=== PATIENT | male | born 1995 | race Caucasian/White ===

== ENCOUNTER 2016-07-28 19:29 | Emergency (ER) | payer BC ==
[2016-07-28 19:49] VITALS: BP 138/89; PULSE 100; RESP 20; TEMP 98.1
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
--- NOTE | 2016-07-28 20:22 | XR ---
EXAMINATION TYPE: XR mandible complete DATE OF EXAM: 07/28/2016 8:13 PM COMPARISON: NONE HISTORY: Jaw pain TECHNIQUE: 5 views FINDINGS: There is a lucent line that is suggestive of a nondisplaced oblique fracture of the right m andibular condyle. This is just seen on the frontal view. There is no dislocation. IMPRESSION: There is probably a nondisplaced fracture of the right mandibular condyle.
== END 2016-07-28 20:46 | disposition home or self-care (01) ==
LOC: EC 19:29
DX: S02.609A Fracture of mandible, unspecified, initial encounter for closed fracture (principal); Y04.0XXA Assault by unarmed brawl or fight, initial encounter
CPT/HCPCS: 70110; 99283

== ENCOUNTER → 2017-11-15 | Outpatient (CLI) | payer OTHER ==
--- NOTE | 2017-11-16 03:47 | MR ---
EXAMINATION TYPE: MR shoulder LT wo con DATE OF EXAM: 11/15/2017 COMPARISON: None HISTORY: Lt shoulder pain, dislocated, decreased ROM, prior surgery 2014 TECHNIQUE: Multiplanar, multisequence imaging of the left shoulder is performed without contrast. FINDINGS: The supraspinatus tendon is intact. Biceps tendon is intact. There is a wavy appearance of the subsca pularis tendon. There is increased signal posterior to the subscapularis tendon and anterior to the a nterior glenoid labrum. The posterior glenoid labrum appears intact. There is small shoulder joint ef fusion. I see no fracture. There is no subacromial impingement. IMPRESSION: There is mixed signal anterior to the anterior glenoid labrum that could relate to a partial tear of the subscapularis tendon. There is triangular-shaped area of mixed signal posterior to the subscapula ris tendon that could be debris and blood clot. There is some mild deformity of the anterior glenoid labrum with some truncation that could relate to a tear. Small joint effusion.
== END | disposition home or self-care (01) ==
LOC: RADMRIMAIN 19:42
PROVIDERS: ATTEND Orthopaedic Surgery
DX: S46.012A Strain of muscle(s) and tendon(s) of the rotator cuff of left shoulder, initial encounter (principal)

== ENCOUNTER → 2017-12-11 | Outpatient (CLI) | payer OTHER ==
[2017-12-11 13:12] LABS: Basophils % (A) 0 %; Eosinophils # (A) 0.2 k/uL (0-0.7); Eosinophils % (A) 2 %; HCT 48.2 % (39.0-53.0); Lymphocytes # (A) 2.3 k/uL (1.0-4.8); Lymphocytes % (A) 27 %; MCH 29.4 pg (25.0-35.0); MCHC 33.2 g/dL (31.0-37.0); MCV 88.5 fL (80.0-100.0); Mean Platelet Volume 7.5; Monocytes # (A) 0.6 k/uL (0-1.0); Monocytes % (A) 7 %; Neutrophils # (A) 5.3 k/uL (1.3-7.7); Neutrophils % (A) 62 %; Platelet Count 309 k/uL (150-450); RBC 5.44 m/uL (4.30-5.90); RDW 12.2 % (11.5-15.5); WBC 8.4 k/uL (3.8-10.6)
[2017-12-11 13:19] LABS: Potassium 4.9 mmol/L (3.5-5.1)
== END | disposition home or self-care (01) ==
LOC: LABWHC1 12:20
PROVIDERS: ATTEND Orthopaedic Surgery
DX: Z01.812 Encounter for preprocedural laboratory examination (principal); M75.42 Impingement syndrome of left shoulder
CPT/HCPCS: 36415; 80051; 85025

== ENCOUNTER 2017-12-26 06:48 | Day surgery (SDC) | payer BC, OTHER ==
[2017-12-20 15:37] VITALS: BMI 28.0
--- NOTE | 2017-12-25 17:10 | HP ---
HISTORY AND PHYSICAL DATE OF SURGERY: 12/26/2017 Phil Daniels is a 22-year-old patient seen with progressive left shoulder pain. We discussed treatment options. He elected to proceed with left shoulder arthroscopy. Consent regarding the procedure was obtained. PAST MEDICAL HISTORY: Noncontributory. PAST SURGICAL HISTORY: Left shoulder surgery. DAILY MEDICATIONS: Tylenol as needed. ALLERGIES: NONE REPORTED. SOCIAL HISTORY: He denies current tobacco use. PHYSICAL EVALUATION OF THE LEFT SHOULDER: There is a previous well-healed anterior incision. Flexion 90 degrees, abduction 60 degrees, external rotation 0 degrees. Tenderness along the anterior glenohumeral area. Impingement sign positive 70 degrees. Distal neurovascular exam intact. LEFT SHOULDER RADIOGRAPHS: Left knee radiographs revealed mild osteoarthritic changes. An MRI of the left shoulder revealed a partial subscapularis tendon tear, probable labral tear and a glenohumeral joint effusion. IMPRESSION: Left shoulder pain with labral tear and rotator cuff tear. PLAN: Left shoulder arthroscopy with arthroscopic decompression, possible labral repair, possible rotator cuff repair and debridement. MMODL / IJN: [id number] /
[~2017-12-26 06:48] MED LIST: DEXAMETHASONE SOD PHOSPHATE 10 MG/ML 1 ML VIAL IV ONE; HYDROmorphone 0.5 MG/0.5 ML SYRINGE IVP PRN; LACTATED RINGERS 1,000 ML IV SCH; LIDOCAINE 1% 20 ML VIAL (10MG/ML) FOR IV START INTRADERMA PRN; MIDAZOLAM 2 MG/2 ML VIAL IV PRN; ONDANSETRON 4 MG/2 ML VIAL IVP ONE; SCOPOLAMINE 1.5MG/72HR PATCH TRANSDERM ONE; ceFAZolin IN SWFI 2 GM/20 ML SYRINGE IVP ONE
[2017-12-26] MEDS ORDERED: MIDAZOLAM 2 MG/2 ML VIAL IV ONE (08:20)
[2017-12-26] MEDS ORDERED: GLYCOPYRROLATE 0.2 MG/ML 2 ML VIAL ONE (08:38)
[2017-12-26] MEDS ORDERED: NEOSTIGMINE 1 MG/ML 10 ML VIAL ONE (08:38)
[2017-12-26] MEDS ORDERED: fentaNYL (PF) 50 MCG/ML 2 ML AMP ONE (08:38)
[2017-12-26] MEDS ORDERED: PROPOFOL 10 MG/ML 20 ML VIAL IV ONE (08:38)
[2017-12-26] MEDS ORDERED: ROCURONIUM BROMIDE 10 MG/ML 10 ML VIAL IV ONE (08:38)
--- NOTE | 2017-12-26 09:02 | P.ONQ ---
Anesthesiology Proc Note - PNB - Peripheral Nerve Block Performed Left Interscalene Single Time Out Performed: Yes (0823) Procedure Start Time: Procedure Stop Time: Indication: Acute Post-Operative Pain, Dx/Pain Location (Left Shoulder Pain), Requested by physician Sedation Type: Sedate with meaningful contact maintained Preparation: Sterile Prep Position: Supine Catheter: None Needle Types: On-Q Needle Size: 50mm (2") Needle Gauge: 21 Technique: Ultrasound Injectate: 0.5% Ropivacaine (see comment for volume) (20 ml) Blood Aspirated: No Pain Paresthesia on Injection Noted: No Resistance on Injection: Normal Events: Uneventful and Well Tolerated
[2017-12-26] MEDS ORDERED: LACTATED RINGERS 1,000 ML IV ONE (09:57)
[2017-12-26 10:12] VITALS: TEMP 97.3
--- NOTE | 2017-12-26 10:21 | P.OP ---
Date of Procedure: 12/26/17 Preoperative Diagnosis: Left shoulder impingement Postoperative Diagnosis: 1. Left shoulder impingement 2. Left shoulder superficial rotator cuff tear 3. Left shoulder adhesions 4. Left shoulder superficial anterior labral tear Procedure(s) Performed: 1. Left shoulder arthroscopic subacromial decompression 2. Left shoulder debridement superficial rotator cuff tear 3. Left shoulder lysis of adhesions 4. Left shoulder debridement superficial anterior labral tear Anesthesia: GETA, regional (Interscalene block) Surgeon: Rickie Morales Estimated Blood Loss (ml): 5 Pathology: none sent Condition: stable Disposition: PACU Indications for Procedure: 22 year-old patient seen with persistent left shoulder pain. After having treatment options discussed, he elected to proceed with arthroscopy. Operative Findings: see description of procedure Description of Procedure: Patient underwent an interscalene block by department of anesthesia for postoperative pain management. The patient was then taken to the operative suite. The patient underwent a general anesthetic by the department of anesthesia. The patient was placed into a lateral position and secured. There was appropriate padding of the bony prominence. Left shoulder was then prepped and draped in normal sterile orthopedic fashion. We placed the extremity in 10 pounds of longitudinal traction. A posterior incision was now made for a posterior working portal site. The trocar and cannula were inserted into the glenohumeral joint. Arthroscopy was initiated. Spinal needle was now inserted anteriorly, to ascertain the anterior working portal site. An incision was now made in that area, a trocar was inserted followed by a probe. There was evidence for previous surgery with some residual sutures along the anterior capsule area. There was a prominent knot anteriorly. At this point I meticulously removed all the redundant residual suture material. The glenohumeral joint appeared unremarkable with no snapping chondromalacia present. The posterior, inferior and superior labrum were all intact and stable. There was evidence for previous work on the anterior labrum. It appeared to be diminutive anterior/superior. There was some superficial tearing more inferiorly. I used a motorized shaver and debrided that down to stable tissue. There was some adhesions anteriorly. A lysis of the adhesions was performed. The residual labrum was at this point found to be stable. It was again diminutive but overall intraoperatively there appeared be good stability of glenohumeral joint. At this point instruments were removed from glenohumeral joint. Utilizing the posterior working portal site, the trocar and cannula were inserted into the subacromial space. Arthroscopy initiated. I made an incision 2 fingerbreadths lateral to the acromion. I introduced my trocar followed by my ArthroCare ablator. I now began ablating thick subacromial bursal tissue, which exposed the undersurface of the anterior acromion. There was diminished subacromial space. I performed a subacromial decompression. There was good decompression noted. I turned my attention to the rotator cuff tendon. There was some superficial tearing on distal super supraspinatus. Motorize shaver was now utilized to debrided down to stable tissue. I meticulously probed the area and did not find any perforations or full-thickness tears present. The tendon tissue was somewhat thin but it appears stable. I now injected 1 ml Renue in the debrided rotator cuff tendon site. Instruments now removed from the portal sites. All portal sites were approximated with nylon suture. Sterile dressings were applied followed by a sling The patient was awakened, transferred to a bed, and taken to recovery in stable condition.
[2017-12-26 10:31] VITALS: RESP 16
[2017-12-26 11:48] VITALS: BP 122/72; PULSE 100
== END 2017-12-26 12:38 | disposition home or self-care (01) ==
LOC: OR 06:48
PROVIDERS: ATTEND Orthopaedic Surgery
DX: M75.42 Impingement syndrome of left shoulder (principal); M75.112 Incomplete rotator cuff tear or rupture of left shoulder, not specified as traumatic; M75.02 Adhesive capsulitis of left shoulder; S43.432A Superior glenoid labrum lesion of left shoulder, initial encounter; X58.XXXA Exposure to other specified factors, initial encounter
CPT/HCPCS: 64415; 29823; C1765; J2250; J1100; J2710; J2405; J3010; J2704; J0690

== ENCOUNTER → 2019-09-12 | Outpatient (CLI) | payer BC ==
[2019-09-12 16:53] LABS: Hepatitis A Antibody IgM Non-Reactive (Non-Reactive); Hepatitis B Core IgM Non-Reactive (Non-Reactive); Hepatitis B Surface Antigen Non-Reactive (Non-Reactive); Hepatitis C IgG Antibody Non-Reactive (Non-Reactive)
== END | disposition home or self-care (01) ==
LOC: LABWHC1 08:02
PROVIDERS: ATTEND Internal Medicine
DX: R94.5 Abnormal results of liver function studies (principal)
CPT/HCPCS: 36415; 80074

== ENCOUNTER 2020-04-15 09:37 | Emergency (ER) | payer BC, OTHER ==
[2020-04-15 09:46] VITALS: PULSE 76; RESP 18; TEMP 97.7
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
[2020-04-15 11:07] VITALS: BP 128/85
== END 2020-04-15 11:07 | disposition home or self-care (01) ==
LOC: EC 09:37
DX: S09.90XA Unspecified injury of head, initial encounter (principal); W22.09XA Striking against other stationary object, initial encounter; Y93.H9 Activity, other involving exterior property and land maintenance, building and construction; Y92.69 Other specified industrial and construction area as the place of occurrence of the external cause; Y99.0 Civilian activity done for income or pay
CPT/HCPCS: 70450; 99284

== ENCOUNTER → 2020-04-16 | Outpatient (CLI) | payer OTHER ==
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
== END | disposition home or self-care (01) ==
LOC: RADXRMAIN 12:34
PROVIDERS: ATTEND Emergency Medicine
DX: S13.4XXA Sprain of ligaments of cervical spine, initial encounter (principal)
CPT/HCPCS: 72050

== ENCOUNTER → 2020-04-27 | Outpatient (CLI) | payer OTHER ==
--- NOTE | 2020-04-27 16:06 | MR ---
EXAMINATION TYPE: MR brain wo con DATE OF EXAM: 04/27/2020 COMPARISON: CT brain April 15, 2020 HISTORY: Dizziness, postconcussion syndrome, contusion injury. TECHNIQUE: Multiplanar, multisequence imaging of the brain and brainstem is performed without IV cont rast. The trauma protocol. FINDINGS: Diffusion weighted images demonstrate no evidence of a recent infarct or other diffusion abnormality. There is no extraaxial fluid collection or significant white matter signal abnormality. The ventricu lar system and cisternal spaces are normal in size and appearance. The brain volume is age appropria te. T2 Star weighted images show no suspicious intraparenchymal blood product. Some artifact suspecte d just superior to the cribriform plate. Midline structures demonstrate normal morphology. The craniocervical junction appears within normal limits. Normal vascular flow voids are present. Incidental dominant left vertebral artery. The visual ized sinuses are clear and the globes are intact. IMPRESSION: No suspicious intraparenchymal blood product. No significant white matter changes. Unrema rkable study.
== END | disposition home or self-care (01) ==
LOC: RADMRIMAIN 14:16
PROVIDERS: ATTEND Emergency Medicine
DX: S00.83XD Contusion of other part of head, subsequent encounter (principal); S13.4XXD Sprain of ligaments of cervical spine, subsequent encounter; G44.321 Chronic post-traumatic headache, intractable
CPT/HCPCS: 70551

== ENCOUNTER 2020-11-01 20:26 | Emergency (ER) | payer BC ==
[2020-11-01 20:48] VITALS: BP 144/92; PULSE 85; RESP 18; TEMP 98.5
[2020-11-01] MEDS ORDERED: PROPARACAINE 0.5% OPHTH DROPS 15 ML BTL RIGHT EYE STA (21:23)
[2020-11-01] MEDS ORDERED: MORPHINE SULFATE 4 MG/ML SYRINGE IM STA (21:49)
[2020-11-01] MEDS ORDERED: ERYTHROMYCIN 5 MG/GM OPHTH OINT 3.5 GM TUBE RIGHT EYE STA (22:03)
[2020-11-01] MEDS ORDERED: FLUORESCEIN STRIPS 1 MG STRIP RIGHT EYE ONE (22:06)
--- NOTE | 2020-11-01 22:20 | ED ---
Eye Problem HPI - General Chief complaint: Eye Problems Stated complaint: Post Op Eye Problems Time Seen by Provider: 11/01/20 21:08 Source: patient Mode of arrival: ambulatory Limitations: no limitations - History of Present Illness Initial comments: Patient is a 24-year-old male presenting to the emergency Department with complaints of worsening pain in his right eye for the past few days. Patient states he had eye surgery, amniotic membrane inserted on 10/[address] Holder. Patient states he started having irritation a few days later but states he has been using his eyedrops as prescribed. Patient states yesterday and today his pain has worsened, he can no longer open his eye all the way without increased pain. He states he did call the office today but they were booked and recommended coming in tomorrow morning. Patient states she was not able to wait that long so he came into the ER. He has been taking ibuprofen for discomfort. He denies any fevers or chills, does admit to some mild blurry vision but states because he can't open his eye other way. He does admit to a little bit of drainage when he wakes up in the mornings. He denies any trauma to his eye. He has no further complaints at this time. - Related Data Home Medications Medication Instructions Recorded Confirmed Naproxen Sodium [Aleve] 220 mg PO DAILY PRN 04/15/20 04/15/20 Allergies Allergy/AdvReac Type Severity Reaction Status Date / Time No Known Allergies Allergy Verified 11/01/20 20:48 Review of Systems ROS Statement: Those systems with pertinent positive or pertinent negative responses have been documented in the HPI. ROS Other: All systems not noted in ROS Statement are negative. Past Medical History Past Medical History: Deep Vein Thrombosis (DVT), Eye Disorder, Musculoskeletal Disorder, Skin Disorder Additional Past Medical History / Comment(s): HX OF FX LT ARM (2-3 TIMES), HX OF SHATTERED LT SHOULDER. HX DISLOCATED LT SHOULDER 07/2017, HAS TORN LABRUM CURRENTLY. HX POSS ECZEMA. HX POSS DVT. SCRATCHED CORNEA RT EYE 11/2017, USING EYE DROPS DIRECTED. History of Any Multi-Drug Resistant Organisms: None Reported Past Surgical History: Orthopedic Surgery Additional Past Surgical History / Comment(s): LEFT SHOULDER RECONSTRUCTION. RT KNEE ARTHROSCOPY. JAW FX WIRED. Past Anesthesia/Blood Transfusion Reactions: No Reported Reaction, Family History of Problems w/ Anesthesia Additional Past Anesthesia/Blood Transfusion Reaction / Comment(s): MOTHER = PONV Past Psychological History: Depression Smoking Status: Never smoker Past Alcohol Use History: Occasional Past Drug Use History: None Reported - Past Family History Mother Family Medical History: No Reported History General Exam - General Exam Comments Initial Comments: GENERAL: Patient is well-developed and well-nourished. Patient is nontoxic and in moderate distress. HEAD: Atraumatic, normocephalic. EYES: Pupils equal round and reactive to light, extraocular movements intact, sclera anicteric. Right eye is slightly injected, eyelids are slightly erythematous both upper and lower. Eye pressures bilaterally are within normal range from 18-22. Flurocensin stain shows lens in proper position, no other abnormalities. ENT: TMs normal, nares patent, oropharynx clear without exudates. Moist mucous membranes. NECK: Normal range of motion, supple without lymphadenopathy or JVD. LUNGS: Unlabored respirations. Breath sounds clear to auscultation bilaterally and equal. No wheezes rales or rhonchi. HEART: Regular rate and rhythm without murmurs, rubs or gallops. NEUROLOGICAL: Patient is alert and oriented x 3. SKIN: Warm, Dry, normal turgor, no rashes or lesions noted. Limitations: no limitations Course Vital Signs 11/01/20 20:45 Temperature 98.5 F Pulse Rate 85 Respiratory 18 Rate Blood Pressure 144/92 O2 Sat by Pulse 99 Oximetry Medical Decision Making - Medical Decision Making Patient is a 24-year-old male here with complaints of increasing right eye pain. He had a membrane inserted by Dr. Holder on 10/28. Increased pain and irritation today, has been taking ibuprofen without improvement. Does admit to some mild drainage over the past couple days as well. Eye pressures are within normal limits. I did speak with Dr. Holder who recommends applying antibiotic ointment to the right eye and patching it shut, he will see him in the office tomorrow. I did check for lens and appears to be in proper position without further abrasions. Patient was given pain meds and reports improvment with his symptoms. He is stable for discharge and agreement with this plan of care. Case discussed with Dr. Saunders. Disposition Clinical Impression: Pain, eye, right Disposition: HOME SELF-CARE Condition: Stable Instructions (If sedation given, give patient instructions): Eye Pain (ED) Additional Instructions: Please return to the Emergency Department if symptoms worsen or any other concerns. Leave right eye taped shut until follow-up tomorrow. Is patient prescribed a controlled substance at d/c from ED?: No Referrals: Cedrick Araiza MD [Primary Care Provider] - 1-2 days Lucas Holder MD [STAFF PHYSICIAN] - 1-2 days Time of Disposition: 22:39
== END 2020-11-01 22:52 | disposition home or self-care (01) ==
LOC: EC 20:26
DX: H57.11 Ocular pain, right eye (principal); Z79.1 Long term (current) use of non-steroidal anti-inflammatories (NSAID)
CPT/HCPCS: 96372; 99283; J2270

== ENCOUNTER 2021-09-29 09:02 | Day surgery (SDC) | payer BC ==
[2021-09-28 11:20] VITALS: BMI 29.9
[~2021-09-29 09:02] MED LIST changes: -DEXAMETHASONE SOD PHOSPHATE 10 MG/ML 1 ML VIAL IV ONE; -HYDROmorphone 0.5 MG/0.5 ML SYRINGE IVP PRN; +LIDOCAINE 1% (10MG/ML) FOR IV START INTRADERMA PRN; -LIDOCAINE 1% 20 ML VIAL (10MG/ML) FOR IV START INTRADERMA PRN; -MIDAZOLAM 2 MG/2 ML VIAL IV PRN; -ONDANSETRON 4 MG/2 ML VIAL IVP ONE; -SCOPOLAMINE 1.5MG/72HR PATCH TRANSDERM ONE; -ceFAZolin IN SWFI 2 GM/20 ML SYRINGE IVP ONE
[2021-09-29 09:18] VITALS: TEMP 97.1
[2021-09-29] MEDS ORDERED: LACTATED RINGERS 1,000 ML IV ONE ×2 (09:18)
[2021-09-29] MEDS ORDERED: ROPIVACAINE 5MG/ML 20ML VIAL ONE (09:39)
[2021-09-29] MEDS ORDERED: MIDAZOLAM 2 MG/2 ML VIAL ONE (09:39)
[2021-09-29] MEDS ORDERED: fentaNYL (PF) 50 MCG/ML 2 ML AMP ONE (09:39)
[2021-09-29] MEDS ORDERED: methylPREDNISolone ACETATE 80 MG/ML 1 ML VIAL ONE (09:39)
--- NOTE | 2021-09-29 10:01 | P.PCN ---
Date of Procedure: 09/29/21 Procedure(s) Performed: Procedure= Left sacroiliac joints steroid injection under fluoroscopy guidance (fluoroscopy image stored on file in the radiology Department ) Preoperative diagnosis= 1-left sacroiliitis 2-left sacroiliac joint dysfunction Postoperative diagnosis=Same as preop Diagnosis . Complication = none Condition= stable Anesthesia= moderate sedation with intravenous Versed 2 mg , and fentanyl 100 micrograms . Indication for the procedure= patient complaining of low back pain , examination was positive for severe tenderness over the left sacroiliac joints bilaterally and patient diagnosed with sacroiliitis, for this reason he was good candidate for sacroiliac joint steroid injection. Description of the procedure= procedure risk and benefits discussed with the patient, including but not limited, risk of infection and bleeding, and ALLERGIC reaction to the medication and not complete pain relief and patient agreed with the preceding patient taken to the operating room, placed in prone position or standard monitors applied to the patient then after induction of anesthesia back prepped with chlorhexidine 3 times , Then under strict sterile technique,the left sacroiliac joint steroid injection done under strict sterile technique local infiltration of the skin and subcu interstitial at the location of the left sacroiliac joint then a 22-gauge Quincke Needle advanced slowly under fluoroscopy time placed in the left sacroiliac joint, needle placement confirmed with AP and oblique and lateral view then after appropriate needle placement confirmed and after negative aspiration 0.5% Ropivacaine 5 mL and 80 mg of Depo-Medrol injected in the left sacroiliac joint after negative aspiration patient tolerated the procedure well that any complications and she will follow up in clinic 3 weeks
[2021-09-29] MEDS ORDERED: IV FLUID CONTINUATION 1,000 ML IV ONE (10:03)
[2021-09-29 10:05] VITALS: RESP 16
[2021-09-29 10:25] VITALS: BP 124/71; PULSE 84
--- NOTE | 2021-09-29 10:35 | FL ---
Fluoroscopy INDICATION: Pain FINDINGS: Fluoroscopy time: 3 seconds. Images obtained: 1. IMPRESSIONS: 1. Documentation of fluoroscopy.
== END 2021-09-29 10:45 | disposition home or self-care (01) ==
LOC: ORPAIN 09:02
PROVIDERS: ATTEND Specialist
DX: M46.1 Sacroiliitis, not elsewhere classified (principal)
CPT/HCPCS: 27096; J2250; J1040; J3010; J2795; 99152

== ENCOUNTER → 2022-08-08 | Outpatient (CLI) | payer OTHER ==
--- NOTE | 2022-08-09 18:03 | MR ---
EXAMINATION TYPE: MR lumbar spine wo con DATE OF EXAM: 08/08/2022 COMPARISON: None HISTORY: 26-year-old male Low back pain into left side, incontinence, Hx of SI joint disorder TECHNIQUE: Multiplanar, multisequence images of the lumbar spine were acquired without IV contrast. FINDINGS: Vertebral body heights are preserved and alignment is maintained. Mild degenerative intervertebral disc desiccation and disc bulging at L4-L5. 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 No focal disc herniation or significant spinal canal stenosis seen. Conus medullaris is normal. No suspicious bone marrow replacement. On the right, this post intravenous and mild right neuroforaminal stenosis at L4-L5 and minimal infer ior foraminal narrowing on the left at L4-L5. IMPRESSION: 1. Mild degenerative disc disease at L4-L5 with mild disc desiccation and disc bulging. While there i s also a mild congenital spinal canal narrowing in the mid lumbar spine, there is no focal disc herni ation or significant spinal canal stenosis. 2. The bulging disc at L4-L5 contributes to mild right and minimal left neuroforaminal narrowing.
== END | disposition home or self-care (01) ==
LOC: RADMRIMAIN 12:59
PROVIDERS: ATTEND Orthopaedic Surgery
DX: M51.16 Intervertebral disc disorders with radiculopathy, lumbar region (principal); M99.73 Connective tissue and disc stenosis of intervertebral foramina of lumbar region
CPT/HCPCS: 72148

== ENCOUNTER → 2022-09-06 | Outpatient (CLI) | payer OTHER ==
--- NOTE | 2022-09-07 08:26 | MR ---
EXAMINATION TYPE: MR thoracic spine wo con DATE OF EXAM: 09/06/2022 COMPARISON: NONE HISTORY: 26-year-old male M5 4.6, thoracic spine pain, Mid/low back pain TECHNIQUE: Multiplanar, multisequence images of the thoracic spine were obtained without IV contrast. FINDINGS: There is mild degenerative disc disease particularly from T6 through T10 levels with mild degenerativ e disc desiccation, mild disc space narrowing, and posterior disc bulging. We note a posterior annula r fissure at T9-T10. No large focal disc herniation or significant spinal canal stenosis is seen. Vertebral body heights are preserved and alignment is maintained. No suspicious pulmonary replacement. Normal course, caliber, and signal intensity of the cervical spinal cord. No significant neuroforaminal narrowing appreciated on either side. Somewhat low lung volumes on the coronal series IMPRESSION: 1. Mild degenerative disc disease especially from T6-T10 levels characterized by mild disc height los s, mild disc desiccation, and small posterior disc protrusions. We note a posterior annular fissure a t T9-T10 as well. 2. No large focal disc herniation or significant spinal canal stenosis. 3. No significant foraminal stenosis.
== END | disposition home or self-care (01) ==
LOC: RADMRIMAIN 11:03
PROVIDERS: ATTEND Orthopaedic Surgery
DX: M47.26 Other spondylosis with radiculopathy, lumbar region (principal); M51.34 Other intervertebral disc degeneration, thoracic region; M51.24 Other intervertebral disc displacement, thoracic region
CPT/HCPCS: 72146

== ENCOUNTER 2022-10-19 22:18 | Emergency (ER) | payer OTHER ==
[2022-10-19 22:29] VITALS: TEMP 98.6
[2022-10-20 01:31] LABS: Basophils % (A) 0 %; Eosinophils # (A) 0.2 k/uL (0-0.7); Eosinophils % (A) 1 %; HCT 47.4 % (39.0-53.0); Lymphocytes # (A) 3.9 k/uL (1.0-4.8); Lymphocytes % (A) 31 %; MCHC 33.7 g/dL (31.0-37.0); MCV 89.1 fL (80.0-100.0); Mean Platelet Volume 7.6; Monocytes # (A) 0.8 k/uL (0-1.0); Monocytes % (A) 6 %; Neutrophils # (A) 7.7 k/uL (1.3-7.7); Neutrophils % (A) 60 %; Platelet Count 397 k/uL (150-450); RBC 5.31 m/uL (4.30-5.90); RDW 12.2 % (11.5-15.5); WBC 12.8 k/uL (3.8-10.6)
[2022-10-20 01:41] LABS: ALT 144 U/L (4-49); AST 41 U/L (17-59); African American GFR (CKD) >90 (>60 ml/min/1.73 sqM); Albumin 3.7 g/dL (3.5-5.0); Alkaline Phosphatase 92 U/L (38-126); Anion Gap 9 mmol/L; Blood Urea Nitrogen 20 mg/dL (9-20); Calcium 8.6 mg/dL (8.4-10.2); Carbon Dioxide 26 mmol/L (22-30); Chloride 102 mmol/L (98-107); Glucose 107 mg/dL (74-99); Non-African American GFR(CKD) >90 (>60 ml/min/1.73 sqM); Potassium 3.6 mmol/L (3.5-5.1); Sodium 137 mmol/L (137-145); Total Bilirubin 0.4 mg/dL (0.2-1.3); Total Protein 6.5 g/dL (6.3-8.2)
[2022-10-20 01:58] LABS: Partial Thromboplastin Time 22.6 sec (22.0-30.0); Prothrombin Time 10.2 sec (9.0-12.0)
--- NOTE | 2022-10-20 02:35 | ED ---
SOB HPI - General Chief Complaint: Shortness of Breath Stated Complaint: Difficulty Breathing, Cough Time Seen by Provider: 10/19/22 23:18 Source: patient Mode of arrival: ambulatory Limitations: no limitations - History of Present Illness Initial Comments: 26-year-old male who presents to the emergency department reporting cough and shortness of breath. States that he has had symptoms since October 08. On the he was tested at an urgent care for Covid and was positive. He was placed on Paxlovid and took the entire prescription. Continued to have symptoms of shortness of breath and cough. Went back to the urgent care on the . They did an x-ray and diagnosed him with Covid pneumonia. They placed him on antibiotics and a five-day course of steroids. he has been using an inhaler. Denies that it helped his symptoms at all. He denies a history of asthma. He is not a smoker. No fevers. No nausea or vomiting. No other alleviating, precipitating or modifying factors - Related Data Home Medications Medication Instructions Recorded Confirmed Naproxen Sodium [Aleve] 220 mg PO DAILY PRN 04/15/20 09/28/21 Pantoprazole [Protonix] 1 tab PO DAILY 08/25/21 09/28/21 Previous Rx's Medication Instructions Recorded Codeine Phosphate/Guaifenesin 5 ml PO Q4HR 3 Days #90 ml 10/20/22 [Codeine Phosphate/Guaifenesin 10-100 mg/5 ml] dexAMETHasone [Decadron] 6 mg PO DAILY #5 tab 10/20/22 Allergies Allergy/AdvReac Type Severity Reaction Status Date / Time No Known Allergies Allergy Verified 10/19/22 22:23 Review of Systems ROS Statement: Those systems with pertinent positive or pertinent negative responses have been documented in the HPI. ROS Other: All systems not noted in ROS Statement are negative. Past Medical History Past Medical History: Deep Vein Thrombosis (DVT), Eye Disorder, Musculoskeletal Disorder, Skin Disorder Additional Past Medical History / Comment(s): HX OF FX LT ARM (2-3 TIMES), HX OF SHATTERED LT SHOULDER. HX DISLOCATED LT SHOULDER 07/2017, HAS TORN LABRUM C URRENTLY. HX POSS ECZEMA. HX POSS DVT. SCRATCHED CORNEA RT EYE 11/2017, USING EYE DROPS DIRECTED. History of Any Multi-Drug Resistant Organisms: None Reported Past Surgical History: Orthopedic Surgery Additional Past Surgical History / Comment(s): LEFT SHOULDER RECONSTRUCTION. RT KNEE ARTHROSCOPY. JAW FX WIRED. Past Anesthesia/Blood Transfusion Reactions: No Reported Reaction Additional Past Anesthesia/Blood Transfusion Reaction / Comment(s): MOTHER = PONV. Past Psychological History: Depression Smoking Status: Never smoker Past Alcohol Use History: Occasional Past Drug Use History: None Reported - Past Family History Mother Family Medical History: No Reported History General Exam Limitations: no limitations General appearance: alert, in no apparent distress Head exam: Present: atraumatic, normocephalic, normal inspection Eye exam: Present: normal appearance, PERRL, EOMI. Absent: scleral icterus, conjunctival injection, periorbital swelling ENT exam: Present: normal exam, mucous membranes moist Neck exam: Present: normal inspection. Absent: tenderness, meningismus, lymphadenopathy Respiratory exam: Present: normal lung sounds bilaterally, other (Bronchospasm). Absent: respiratory distress, wheezes, rales, rhonchi, stridor Cardiovascular Exam: Present: normal rhythm, tachycardia, normal heart sounds. Absent: systolic murmur, diastolic murmur, rubs, gallop, clicks GI/Abdominal exam: Present: soft, normal bowel sounds. Absent: distended, tenderness, guarding, rebound, rigid Extremities exam: Present: normal inspection, full ROM, normal capillary refill. Absent: tenderness, pedal edema, joint swelling, calf tenderness Back exam: Present: normal inspection Neurological exam: Present: alert, oriented X3, CN II-XII intact Psychiatric exam: Present: normal affect, normal mood Skin exam: Present: warm, dry, intact, normal color. Absent: rash Course Vital Signs 10/19/22 10/19/22 10/20/22 22:24 22:43 03:16 Temperature 98.6 F Pulse Rate 108 H 88 Respiratory 20 24 20 Rate Blood Pressure 121/79 126/88 O2 Sat by Pulse 95 98 Oximetry Medical Decision Making - Medical Decision Making Was pt. sent in by a medical professional or institution (, PA, KNITTING MACHINE OPERATOR, urgent care, hospital, or fci...) When possible be specific @ -No Did you speak to anyone other than the patient for history (EMS, parent, family, police, friend...)? What history was obtained from this source @ -No Did you review nursing and triage notes (agree or disagree)? Why? @ -I reviewed and agree with nursing and triage notes Were old charts reviewed (outside hosp., previous admission, EMS record, old EKG, old radiological studies, urgent care reports/EKG's, fci records)? Report findings @ -No old charts were reviewed Differential Diagnosis (chest pain, altered mental status, abdominal pain women, abdominal pain men, vaginal bleeding, weakness, fever, dyspnea, syncope, headache, dizziness, GI bleed, back pain, seizure, CVA, palpatations, mental health, musculoskeletal)? @ -Differential Dyspnea: Coronary syndrome, arrhythmia, tamponade, asthma, COPD, pulmonary embolism, pneumonia, pneumothorax, pulmonary effusion, anaphylaxis, diabetic ketoacidosis, flailed chest, pulmonary contusion, diaphragmatic rupture, anemia, neuromuscular, this is not meant to be an all-inclusive list. EKG interpreted by me (3pts min.). @ -Yes and demonstrates sinus rhythm with a rate of 79. TX interval 148. QRS 98. QTC 391. No acute ST segment elevations or depressions X-rays interpreted by me (1pt min.). @ -Yes and demonstrates no acute process CT interpreted by me (1pt min.). @ -None done U/S interpreted by me (1pt. min.). @ -None done What testing was considered but not performed or refused? (CT, X-rays, U/S, labs)? Why? @ -None What meds were considered but not given or refused? Why? @ -None Did you discuss the management of the patient with other professionals ( professionals i.e. , PA, KNITTING MACHINE OPERATOR, lab, RT, psych nurse, social media assistant, mechanics handyman, teacher, commercial credit officer, immigration case worker)? Give summary @ -No Was smoking cessation discussed for >3mins.? @ -No Was critical care preformed (if so, how long)? @ -No Were there social determinants of health that impacted care today? How? (Homelessness, low income, unemployed, alcoholism, drug addiction, transpo rtation, low edu. Level, literacy, decrease access to med. care, fpc, rehab)? @ -No Was there de-escalation of care discussed even if they declined (Discuss DNR or withdrawal of care, Hospice)? DNR status @ -No What co-morbidities impacted this encounter? (DM, HTN, Smoking, COPD, CAD, Cancer, CVA, ARF, Chemo, Hep., AIDS, mental health diagnosis, sleep apnea, morbid obesity)? @ -None Was patient admitted / discharged? Hospital course, mention meds given and route, prescriptions, significant lab abnormalities, going to OR and other pertinent info. @ -Upon arrival patient was placed into room 7. A thorough history and physical exam was performed. IV was established. Laboratory studies are conducted. Chest x-ray was performed. Laboratory studies are within normal limits. D-dimer negative. Chest x-ray demonstrates no acute process. Patient was given a dose of Decadron. Discussed the treatment plan with the patient. He will be placed on a second course of steroids. I will also prescribe him codeine cough syrup. He is instructed to take the medications as directed and follow-up with his primary care doctor. Return for any new or worsening sy mptoms. If he has continued symptoms, he may benefit by seeing a first crusher. Patient was agreeable to the plan and was discharged in stable condition Undiagnosed new problem with uncertain prognosis? @ -No Drug Therapy requiring intensive monitoring for toxicity (Heparin, Nitro, Insulin, Cardizem)? @ -No Were any procedures done? @ -No Diagnosis/symptom? @ -Acute bronchospasm, recent Covid diagnosis Acute, or Chronic, or Acute on Chronic? @ -Acute Uncomplicated (without systemic symptoms) or Complicated (systemic symptoms)? @ -Complicated Side effects of treatment? @ -No Exacerbation, Progression, or Severe Exacerbation? @ -No Poses a threat to life or bodily function? How? (Chest pain, [place], [place], pneumonia, PE, COPD, DKA, ARF, appy, cholecystitis, CVA, Diverticulitis, Homicidal, Suicidal, threat to staff... and all critical care pts) @ -No - Lab Data Result diagrams: 10/20/22 00:50 10/20/22 00:50 Lab Results 10/20/22 10/20/22 10/20/22 Range/Units 00:50 00:50 00:50 WBC 12.8 H (3.8-10.6) k/uL RBC 5.31 (4.30-5.90) m/uL Hgb 16.0 (13.0-17.5) gm/dL Hct 47.4 (39.0-53.0) % MCV 89.1 (80.0-100.0) fL MCH 30.0 (25.0-35.0) pg MCHC 33.7 (31.0-37.0) g/dL RDW 12.2 (11.5-15.5) % Plt Count 397 (150-450) k/uL MPV 7.6 Neutrophils % 60 % Lymphocytes % 31 % Monocytes % 6 % Eosinophils % 1 % Basophils % 0 % Neutrophils # 7.7 (1.3-7.7) k/uL Lymphocytes # 3.9 (1.0-4.8) k/uL Monocytes # 0.8 (0-1.0) k/uL Eosinophils # 0.2 (0-0.7) k/uL Basophils # 0.0 (0-0.2) k/uL PT 10.2 (9.0-12.0) sec INR 1.0 (<1.2) APTT 22.6 (22.0-30.0) sec D-Dimer 0.20 (<0.60) mg/L FEU Sodium 137 (137-145) mmol/L Potassium 3.6 (3.5-5.1) mmol/L Chloride 102 (98-107) mmol/L Carbon Dioxide 26 (22-30) mmol/L Anion Gap 9 mmol/L BUN 20 (9-20) mg/dL Creatinine 0.75 (0.66-1.25) mg/dL Est GFR (CKD-EPI)AfAm >90 (>60 ml/min/1.73 sqM) Est GFR (CKD-EPI)NonAf >90 (>60 ml/min/1.73 sqM) Glucose 107 H (74-99) mg/dL Plasma Lactic Acid William (0.7-2.0) mmol/L Calcium 8.6 (8.4-10.2) mg/dL Total Bilirubin 0.4 (0.2-1.3) mg/dL AST 41 (17-59) U/L ALT 144 H (4-49) U/L Alkaline Phosphatase 92 (38-126) U/L Troponin I (0.000-0.034) ng/mL Total Protein 6.5 (6.3-8.2) g/dL Albumin 3.7 (3.5-5.0) g/dL 10/20/22 10/20/22 Range/Units 00:50 00:50 WBC (3.8-10.6) k/uL RBC (4.30-5.90) m/uL Hgb (13.0-17.5) gm/dL Hct (39.0-53.0) % MCV (80.0-100.0) fL MCH (25.0-35.0) pg MCHC (31.0-37.0) g/dL RDW (11.5-15.5) % Plt Count (150-450) k/uL MPV Neutrophils % % Lymphocytes % % Monocytes % % Eosinophils % % Basophils % % Neutrophils # (1.3-7.7) k/uL Lymphocytes # (1.0-4.8) k/uL Monocytes # (0-1.0) k/uL Eosinophils # (0-0.7) k/uL Basophils # (0-0.2) k/uL PT (9.0-12.0) sec INR (<1.2) APTT (22.0-30.0) sec D-Dimer (<0.60) mg/L FEU Sodium (137-145) mmol/L Potassium (3.5-5.1) mmol/L Chloride (98-107) mmol/L Carbon Dioxide (22-30) mmol/L Anion Gap mmol/L BUN (9-20) mg/dL Creatinine (0.66-1.25) mg/dL Est GFR (CKD-EPI)AfAm (>60 ml/min/1.73 sqM) Est GFR (CKD-EPI)NonAf (>60 ml/min/1.73 sqM) Glucose (74-99) mg/dL Plasma Lactic Acid William 1.3 (0.7-2.0) mmol/L Calcium (8.4-10.2) mg/dL Total Bilirubin (0.2-1.3) mg/dL AST (17-59) U/L ALT (4-49) U/L Alkaline Phosphatase (38-126) U/L Troponin I <0.012 (0.000-0.034) ng/mL Total Protein (6.3-8.2) g/dL Albumin (3.5-5.0) g/dL Disposition Clinical Impression: Bronchospasm, COVID-19 Disposition: HOME SELF-CARE Condition: Stable Instructions (If sedation given, give patient instructions): Bronchospasm (ED), COVID-19 (Coronavirus Disease 2019) (ED) Additional Instructions: Please take the steroids daily as directed. Continue to use your inhaler every 4 hours. Use the codeine cough syrup as needed. Follow-up with your doctor and return for any new or worsening symptoms Prescriptions: Codeine Phosphate/Guaifenesin [Codeine Phosphate/Guaifenesin 10-100 mg/5 ml] 5 ml PO Q4HR 3 Days #90 ml dexAMETHasone [Decadron] 6 mg PO DAILY #5 tab Is patient prescribed a controlled substance at d/c from ED?: Yes When asked, does pt state using other controlled substances?: No If prescribed controlled substance>3 days was MAPS reviewed?: Prescribed <3 Days Referrals: None,Stated [Primary Care Provider] - 1-2 days Amy Haley MD [STAFF PHYSICIAN] - 1-2 days Time of Disposition: 02:55
[2022-10-20] MEDS ORDERED: guaiFENesin-Coden 100-10MG/5ML 10 ML CUP PO STA (02:47)
[2022-10-20] MEDS ORDERED: DEXAMETHASONE SOD PHOSPHATE 10 MG/ML 1 ML VIAL IVP STA (02:47)
--- NOTE | 2022-10-20 03:11 | XR ---
EXAM: XR Chest, 2 Views CLINICAL HISTORY: difficulty breathing TECHNIQUE: Frontal and lateral views of the chest. COMPARISON: 02/28/16 FINDINGS: Lungs: Unremarkable. No consolidation. Pleural space: Unremarkable. No pneumothorax. Heart: Unremarkable. No cardiomegaly. Mediastinum: Unremarkable. Bones/joints: Unremarkable. IMPRESSION: Normal chest x-rays.
[2022-10-20 03:18] VITALS: BP 126/88; PULSE 88; RESP 20
== END 2022-10-20 03:18 | disposition home or self-care (01) ==
LOC: EC 22:18
DX: U07.1 COVID-19 (principal); J98.01 Acute bronchospasm; Z86.718 Personal history of other venous thrombosis and embolism; F32.A Depression, unspecified; Z79.899 Other long term (current) drug therapy
CPT/HCPCS: 36415; 93005; 85379; 80053; 83605; 84484; 85025; 85610; 85730; 71046; 99285; 96374; J1100

== ENCOUNTER → 2022-11-03 | Outpatient (CLI) | payer OTHER ==
--- NOTE | 2022-11-03 20:05 | MR ---
EXAMINATION TYPE: MR cervical spine wo con DATE OF EXAM: 11/03/2022 INDICATION: Patient age: Male; 26 years old; Reason for study: M46.1, M54.12; PHH. Neck pain that radiates down left arm COMPARISON: . None TECHNIQUE: Multi planar, multi sequence imaging was performed utilizing: T1-weighted, T2-weighted, an d turbo inversion recovery imaging of the cervical spine. IV Contrast: None FINDINGS: Alignment: The cervical vertebral bodies have preserved heights. Alignment is within normal limits gi chidi patient positioning. Bones: Bone signal is within normal limits. No abnormal bone marrow edema on inversion recovery seque nces. Minimal degeneration changes throughout the spine. Cord: The spinal cord is unremarkable with regards to their signal intensity and morphology. Discs: Intervertebral disc signal is maintained. C2-C3: No significant disc pathology. The spinal canal is patent. No neural foraminal stenosis. C3-C4: No significant disc pathology. The spinal canal is patent. No neural foraminal stenosis. C4-C5: No significant disc pathology. The spinal canal is patent. No neural foraminal stenosis. C5-C6: No significant disc pathology. The spinal canal is patent. No neural foraminal stenosis. C6-C7: No significant disc pathology. The spinal canal is patent. No neural foraminal stenosis. C7-T1: No significant disc pathology. The spinal canal is patent. No neural foraminal stenosis. Other: None. IMPRESSION: No evidence for disc herniation or significant spinal canal or neural foraminal stenosis.
--- NOTE | 2022-11-03 20:16 | MR ---
EXAMINATION TYPE: MR pelvis wo con DATE OF EXAM: 11/03/2022 COMPARISON: None CLINICAL INDICATION:Male, 26 years old with history of M46.1, M54.12; PHH, Lumbar sacroiliitis. TECHNIQUE: Triplane multisequence imaging was performed of the pelvis. IV Contrast: None FINDINGS: Reproductive: Prostate: Unremarkable. Seminal vesicle's: Unremarkable. Testes: Unremarkable. Bladder: Unremarkable. Bowel: Unremarkable as visualized. Peritoneum: Unremarkable Lymph nodes: No evidence of adenopathy. Vasculature: Unremarkable. Musculoskeletal: Mild osteophyte formation of the sacroiliac joints. Bone marrow signal is maintained . No evidence for bone marrow edema. Abdominal wall/soft tissues: Unremarkable. IMPRESSION: Mild degeneration changes of the sacroiliac joints without evidence for acute sacroiliitis.
== END | disposition home or self-care (01) ==
LOC: RADMRIMAIN 17:43
PROVIDERS: ATTEND Orthopaedic Surgery
DX: M46.1 Sacroiliitis, not elsewhere classified (principal); M54.12 Radiculopathy, cervical region
CPT/HCPCS: 72141; 72195

== ENCOUNTER 2022-11-06 07:09 | Day surgery (SDC) | payer OTHER ==
[2022-11-01 09:11] VITALS: BMI 31.9
--- NOTE | 2022-11-06 06:50 | P.HPOR ---
History of Present Illness H&P Date: 11/06/22 .D:Date: 09/14/22 : 02:43pm .T:Title: [facility] Date of :[birth year] R14 Allergies: Age: 26 year Height: 5'8" Weight: 225 lbs BP:127/83 BMI: 34.21 kg/m2 Occupation: [employer] VAS: 5 CHIEF COMPLAINT: recheck left sacroiliitis HISTORY: Xrays No new xrays taken in office Trauma or injury No Work-Related No Pain description burning. Location lateral posterior Activity Modification No Hand Dominance right DOI: None. DOS: None. TREATMENTS COMPLETED: 6 weeks of PT completed? Last completed in 2020 Yes How many sessions? 1 month (8 visits) Did it help? yes Physician directed home exercise completed? yes , doing currently with relief. Medications yes List: Motrin and Tylenol and Medrol Dosepak with mild relief of symptoms. Alternative interventions Chiropractic: No Massage therapy: No Brace: No Injections No RFA: No SUBJECTIVE: Today Mr. Daniels presents to the office for a recheck of his left sacroiliitis and thoracic MRI results. Since the time of the last appointment the patient reports that his symptoms have not changed and that he is still having "restroom" problems. He reports increased low back pain, primarily on the left side, radiating into the bilateral lower extremities (worse on left as well).He denies any numbness or tingling extending into the lower extremities at this time. Patient notes his symptoms are exacerbated with prolonged standing or activity which is making completion of his daily tasks difficult. He denies any sleep disturbances at this time. Patient has trialed the Medrol dosepak with 65- 70% relief while on it. Otherwise he has been taking Motrin and Tylenol PRN with relief as his symptoms worsen. Patient continues to deny any bladder or bowel retention/incontinence, no perineal numbness/tingling, and ambulates HPI: Today Mr. Daniels presents to the office on 08/18/22 for a recheck of his left sacroiliitis and lumbar MRI results. Since the time of the last appointment the patient reports that his symptoms have not changed and that he is still having "restroom" problems. He reports increased low back pain, primarily on the left side, radiating into the bilateral lower extremities (worse on left as well).He denies any numbness or tingling extending into the lower extremities at this time. Patient notes his symptoms are exacerbated with prolonged standing or activity which is making completion of his daily tasks difficult. He denies any sleep disturbances at this time. Patient has trialed the Medrol dosepak with 30- 40% relief for 2-3 days. Otherwise he has been taking Motrin and Tylenol PRN with relief as his symptoms worsen. Patient continues to deny any bladder or bowel retention/incontinence, no perineal numbness/tingling, and ambulates Today Mr. Daniels presents to the office on 07/26/22 for a recheck of his left sacroiliitis. Since the time of the last appointment the patient reports that his symptoms have worsened especially since 03/2022. He reports increased low back pain, primarily on the left side, radiating into the bilateral lower extremities (worse on left as well). Patient states he had SI injections in September 2021 which gave some relief but did not follow up due to loss of insurance. He denies any numbness or tingling extending into the lower extremities at this time. Patient notes his symptoms are exacerbated with prolonged standing or activity which is making completion of his daily tasks difficult. He denies any sleep disturbances at this time. Patient has trialed 1 month of physical therapy along with doing the physician recommended home exercise program daily with mild relief. Otherwise he has been taking Motrin and Tylenol PRN with relief as his symptoms worsen. Patient continues to deny any bladder or bowel retention/inc ontinence, no perineal numbness/tingling, and ambulates The patients' past social, medical, family, surgical history, as well as review of systems, have been reviewed. Please refer to the Neurosurgery History and Physical form that has been scanned in to our electronic medical record system. 14 points review of systems completed and as stated in HPI, all other systems reviewed are negative. Social History: Smoking:never a smoker P3 Alcohol: none P3 Family History: Reviewed, see appropriate section of the chart for details. P2 Past Medical History: Reviewed, see appropriate section of the chart for details. P1 Current Medications: Rx: TYLENOL 500mg ORAL , Ref: 0 Rx: methylPREDNISolone 4 mg tablets in a dose pack Ref: 0 Rx: Motrin IB Ref: 0 P1 PHYSICAL EXAMINATION: General: Awake, alert, appropriate for age, in no acute distress. HEENT: No unusual neck masses around region of lateral neck triangle, thyroid, supraclavicular groove Extremities: Skin warm and dry without acute lesions, coloration, temperature, skin intact, no tenderness or erythema Integument: Hairy patches: Absent Dorsal skin dimples: Absent Cafe au lait spots: Absent Surgical incisions: No Palpation: Please see Pain drawing on Intake sheet for further detail. Midline spinal tenderness: Yes E6 Paralumbar tenderness: YES E6 Parathoracic tenderness: Yes E6 Buttocks tenderness: No E6 Special findings: yes SI joint testing: Positive fortins finger on the left Positive hip thrust test on the left positive Emily floors on the left Positive distraction on the left Positive compression on the left POSTURAL and MUSCULO-SKELETAL EVALUATION: Coronal Balance: NEUTRAL Recumbent testing: Patient is able to lay flat on back Sagittal Balance: NEUTRAL Shoulder Profile: LEVEL Pelvic Girdle: LEVEL Neck ROM: UNRESTRICTED Lumbar ROM: RESTRICTED Shoulder ROM: Symmetrical Hip ROM: Symmetrical Knee ROM: Symmetrical Hands: Normal appearance, symmetrical Feet: Normal appearance, Symmetrical VASCULAR STATUS : LEFT RIGHT Wrist Pulses INTACT INTACT Pedal Pulses (Dors. pedis & post.tibialis) INTACT INTACT Color NORMAL NORMAL Edema Absent Absent NEUROLOGIC EXAMINATION: Mental Status:Awake and alert, fully oriented, with normal attention, concentration and memory, and fluent, appropriate speech. Cranial Nerves: I: Olfactory not tested. II: Visual acuity normal, no visual field deficit noted with confrontation. III,IV: Normal pupillary reflexes & intact extraocular movements without nystagmus. V,: Intact symmetrical facial sensation. VII: Intact symmetrical facial motor movement VIII: Hearing intact. IX,X: Intact gag, swallow, & normal voice. XI: Sternocleidomastoid, trapezius function intact. XII: Tongue midline with normal movements. L'hermitte's Sign: Negative / absent Spurling'Sign: Absent bilaterally. Cubital percussion test: Absent bilaterally. Coy-Tinel sign - Carpal region: Absent bilaterally. Straight Leg Raising: positive left Crossed straight leg raise: negative O8 MOTOR EXAM (0-5/5, N/T) STRENGTH RIGHT LEFT Shoulder Abd (not part of the RIKA score) 5 5 Elbow Flexors 5 5 Elbow Extensor 5 5 Wrist Dorsiflexors 5 5 Finger Abductor 5 5 Personnel Clerk 5 5 Hip Flexor (Not part of RIKA Motor score) 5 4 Knee Flexor 5 4 Knee Extensor 5 4 Ankle dorsiflexor 5 4 Ankle plantarflexion 5 4 Extensor hallucis 5 4 REFLEXES(0-4/2, NT) RIGHT LEFT Upper Extremities 2 2 Lower Extremities 2 2 Pathological Reflexes RIGHT LEFT Coy's Absent Absent Clonus Absent Absent Babinski Absent Absent # Indicates mechanical impairment Muscle appearance: Symmetrical, without signs of atrophy or dystrophy. Sensory system (0-4, N/T) Test type RU RAHUL RL LL Joint-Position 2 2 2 2 Vibration 2 2 2 2 Pain & LT sense 2 2 2 2 Dermatomal Deficit: None None None L4-L5 Gait and Functional Evaluation: Ambulatory aids: Independent Romberg's test: Intact bilaterally Toe heel walk / heel-toe walk intact while maintaining satisfactory balance? yes Squatting/straightening w/o assistance to a min of 60 degree knee flexion? yes Single leg stance: intact Trendelenburg sign negative bilaterally Hand and finger dexterity intact bilaterally? yes Disdiadochokinesis examination negative bilaterally? yes RADIOGRAPHIC STUDIES: MRI of lumbar spine taken on 08/08/22 at outside facility: Images reviewd with pt Mild degenerative changes of L4-5 with hydration loss. Some broad based disc bulging but no significant stenosis or nerve encroachment noted. No fractures no lesions. Remaining levels are of normal height and hydration. Nothing to explain his sx. MRI of thoracic spine taken on 09/06/22 at outside facility: No significant stenosis, or herniation. No fracture. Alignment stable. No lesions. IMPRESSION It was my pleasure to have seen and examined Phil. I reviewed the patient's clinical syndrome, physical findings, and imaging studies during the appointment today. It is my impression that the patient has a diagnosis of. 1. Left sarcoilliac osteoarthritis 2. L4-5 Disc Bulge 3. Urinary Incontinence, Fecal Incontinence 4. Lower left extremity radiculopathy 5. lower left extremity weakness I outlined the natural course history without intervention and various interventional options. PLAN: Based on my findings I suggest the following course of action: -Cervical and pelvis MRIs ordered today -Advised patient to continue with supplements, health maintenance, and home exercise programs. Patient expressed understanding and will continue with these modalities. - I discussed treatment options with the patient, including operative and non- operative options, and they have elected to proceed with the following surgical procedure: Left SI Joint injection The indications, risks, benefits, and alternatives to surgery were discussed with the patient at length. Specifically (but not limited to) the risks of infection, stiffness, recurrence of symptoms, need for revision surgery, local numbness, neurovascular injury, and blood clots were discussed. The patient's questions were answered. The decision to proceed was made. Consent will be obtained for the procedure. -Ambulate daily -Take medications as directed -Ice and rest for pain and swelling control. Spine Surgery Risk Review Mr. Daniels is presenting for evaluation of left sacroiliitis. It was my pleasure to have seen and examined Mr. Daniels. In our visit today we have had a chance to go over subjective complaints, physical examination findings and treatments including the natural course history without intervention and various interventional options. The patients imaging demonstrates: XRay taken on 07/26/22 of Lumbar Spine & Pelvis: Multiple Views of the lumbar spine obtained and reviewed and demonstrate normal sagittal as well as coronal alignment. Disc heights and vertebral body heights are maintained. There is no fracture or dislocation noted. No listhesis noted. AP pelvis demonstrates congruent level pelvis no fracture or dislocation MRI of lumbar spine taken on 08/08/22 at outside facility: Images reviewd with pt Mild degenerative changes of L4-5 with hydration loss. Some broad based disc bulging but no significant stenosis or nerve encroachment noted. No fractures no lesions. Remaining levels are of normal height and hydration. Nothing to explain his sx. MRI of thoracic spine taken on 09/06/22 at outside facility: On physical exam, Mr. Daniels demonstrates: Since the time of the last appointment the patient reports that his symptoms have not changed and that he is still having "restroom" problems. He reports increased low back pain, primarily on the left side, radiating into the bilateral lower extremities (worse on left as well).He denies any numbness or tingling extending into the lower extremities at this time. Patient notes his symptoms are exacerbated with prolonged standing or activity which is making completion of his daily tasks difficult. I have explained to the patient that as their condition progresses it will cause further neurological deficits and eventual paralysis. Based on the patients imaging, physical exam, and the rapid progression and disabling nature of their symptoms, at this time I recommend surgery in the form of a: Left SI Joint injection I discussed the risk and benefits of this procedure at length with Mr. Daniels. The patient agreed to considered pursuing the procedure abovement ioned. Prior to surgery, she should follow up with her PCP (Cardio, ID, IM etc) for clearance. Questions were invited and answered, and the patient wishes to proceed as outlined below. Currently, I am recommendin.Left SI Joint injection 2.Follow up with PCP for surgical clearance 3.Review of surgical risks and benefits as well as an educational packet on the proposed surgical procedure. Risks: All surgical procedures come with inherent risks, including those related to positioning, anesthesia, intraoperative findings, and postoperative complications. It is important to understand that surgery does not come with any guarantee of a successful outcome as complications and adverse events are always possible. The patient was given a handout in office today discussing the surgical procedure and risks associated with the intervention, both of which were discussed with the patient. These risks include but are not limited to the following: * Experiencing same, different or even worse symptoms in back, neck, arms, or legs compared to before surgery. Requiring further surgery or other forms of treatment presently or at some time in the future at same or other levels of the intended spine surgery. On an extreme but fortunately relatively rare basis severe complication such as blindness, stroke, heart attack, temporary and/or permanent nerve injury, paralysis, coma, or may occur, sometimes without known explanation. Surgical complications may include but are not limited to risk of infection, fluid accumulation in the surgical dissection site, including a seroma or hematoma, that requires additional surgery, wound drainage, bleeding, new numbness or weakness, vision changes/loss, spinal fluid leakage, non-healing and/or infected incision, headaches, difficulty or inability to swallow, hoarseness, hemopneumothorax, pneumothorax, impotence, retrograde ejaculation, vaginal dryness; injury to nerves, spinal cord, blood vessels, lymphatics or other vital organs (i.e., bowel injury, injury to the great vessels); heterotopic bone formation; complications related to the hardware such as screws, rods, cages including misplaced hardware, device failure, instrumentation at the wrong spine level, hardware fracture/breakage, or hardware loosening; vertebral failure of the spinal column above or below the newly placed hardware; retained surgical instrumentations or devices and the need for further surgery. * Medical risks of the planned spine surgery include but are not limited to generalized Infections to the whole body or local areas outside of the surgical site (sepsis), heart attack, bleeding, anaphylaxis, meningitis, seizure, epilepsy, hearing loss, burn sultana, laceration of the head or other areas of the body, bruising, hypersensitivity of the skin, bladder over distension; allergic reaction; shoulder injury related to positioning; fat, blood and air clots to other areas of the body like heart, lungs, brain; failure of internal organs such as lungs, kidneys, liver and excessive bleeding. If blood transfusions are necessary, note that transfusions may cause intolerance reactions such as anaphylaxis or other complex reactions. Despite best efforts, the results of spine surgery might not heal in terms of bone, soft tissues such as skin, fascia, ligaments, and joints. Additionally, in order to achieve best possible results, spine surgery may be carried out beyond the initially planned levels and involve decompression, fusion including insertion of hardware at levels other than the original intended area of surgical interest change some portions of the procedure in order to ensure the best possible outcomes. With spine surgery and spinal fusion, there are different off label uses of instrumentation (devices, implants and hardware) as well as biological substances (bone morphogenic proteins, demineralized bone matrix) as well as using extra bone from allograft sources (i.e. cadaver bone) or autograft (iliac crest bone, ribs, or the spine itself). The patient has been given information about these practices and their inherent risks and benefits. [facility] is an educational center that serves as a training facility for neurosurgical and orthopedic TICKET [employer] and Nursing students. Physician assistants are medically trained surgical providers who function in the outpatient, inpatient, and operating room setting under the direct supervision of the attending surgeon. [facility] has multiple operating rooms with single and overlapping rooms running daily. They currently function under the required guidelines as produced by the [facility] with regards to the overlapping rooms and will continue to comply with changes to this policy as they occur. The requirements include and are complied with as follows: (1) the critical portions of the overlapping rooms will not occur at the same time, (2) the attending physician will be physically present during the critical portions of the procedure and immediately available during the entire case, and (3) a back-up attending is designated should the primary attending not be immediately available. The patient has had a chance to review all the listed information, has been given print outs detailing this information, and has had all his/her questions answered to their satisfaction. It was my pleasure to have seen and examined Mr. Daniels. In our visit today we have had a chance to go over my understanding of our patient's current condition, the natural course history without intervention and various interventional options. Questions were invited and answered, and the patient wishes to proceed as outlined above. I have seen and examined the patient for 25 minutes and we have spent more than 50% of the time in repeat and detailed counseling about the patient's condition, its natural course history with out and as much as can be predicted with surgery and re-review of various surgical treatment options. In conclusion, Mr. Daniels requested we proceed with the above suggested surgery and are willing to accept risks and limitations of the suggested surgery as nature of the disease process and our best attempts at treatment for the condition. Thank you again for allowing us to be part of your patient's care. Please don't hesitate to contact me if you have any further questions. Signed and authenticated by: juan Gomez DO [facility] Complex and Minimally Invasive Spine Surgery [address] [place], [place] [id number] Follow- up: Post procedure Patient Education: (Informational booklet, instructions, etc) given at today's appointment: Yes .ED:Patient Education: Y Medications Reviewed: YES In our visit today Mr. Daniels and I have had a chance to go over my understanding of the patient's current condition, the natural course history without intervention and various interventional options. Questions were invited and answered, and the patient wishes to proceed as outlined above. I will be sure to keep you updated afterMr. Daniels returns here for further follow-up. Thank you again for your referral. Please do not hesitate to contact me if you have any further questions. Signed and authenticated by: Jesús Gomez DO [facility] Complex and Minimally Invasive Spine Surgery [address] [place] [address], [address] [id number] This message is confidential, intended only for the named recipient(s) and may contain information that is privileged or exempt from disclosure under applicable law. If you are not the intended recipient(s), you are notified that the dissemination, distribution or copying of this information is strictly prohibited. If you received this message in error, please notify the sender then delete this message. Patient verbalizes understanding of the information discussed. The above note was initiated by Kushal Tovar, physician recording paraprofessional education assistant for Dr. Jesús Gomez. This note has been reviewed by Dr. Gomez, who has made his personal changes and impressions for this document. CC: Cedrick Araiza M.D. # SIGNED BY Jesús Gomez ([facility])09/20/2022 11:01AM Past Medical History Past Medical History: Eye Disorder, GERD/Reflux, Musculoskeletal Disorder, Skin Disorder Additional Past Medical History / Comment(s): Hx Covid 10/09/22, still has difficulty breathing and a rapsy cough. HX OF FX LEFT ARM (2-3 TIMES), HX OF SHATTERED LEFT SHOULDER. HX DISLOCATED LEFT SHOULDER, HAS TORN LABRUM CURRENTLY. HX POSSIBLE ECZEMA. 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 Optic migraines. Difficulty urinating and defecating, "Dr Gomez thinks related to back issues". History of Any Multi-Drug Resistant Organisms: None Reported Past Surgical History: Orthopedic Surgery Additional Past Surgical History / Comment(s): LEFT SHOULDER RECONSTRUCTION, RIGHT KNEE ARTHROSCOPY, JAW WIRED SHUT DUE TO FRACTURE. Past Anesthesia/Blood Transfusion Reactions: No Reported Reaction Additional Past Anesthesia/Blood Transfusion Reaction / Comment(s): MOTHER PONV. Past Psychological History: Depression Additional Psychological History / Comment(s): PAST HX OF DEPRESSION 4-5 YEARS AGO - NO TREATMENT NOW. Smoking Status: Never smoker Past Alcohol Use History: Occasional Past Drug Use History: None Reported - Past Family History Mother Family Medical History: No Reported History Medications and Allergies Home Medications Medication Instructions Recorded Confirmed Type Naproxen Sodium [Aleve] 220 mg PO DAILY PRN 04/15/20 11/01/22 History Acetaminophen Tab [Tylenol Tab] 500 - 1,000 mg PO Q4-6H PRN 11/01/22 11/01/22 History Eye Drop Otc 1 drop RIGHT EYE DIRECTED 11/01/22 11/01/22 History Omeprazole Magnesium [PriLOSEC OTC] 20 mg PO DAILY 11/01/22 11/01/22 History Allergies Allergy/AdvReac Type Severity Reaction Status Date / Time No Known Allergies Allergy Verified 10/19/22 22:23 Physical Examination Osteopathic Statement: *. No significant issues noted on an osteopathic structural exam other than those noted in the History and Physical/Consult.
[~2022-11-06 07:09] MED LIST changes: -LACTATED RINGERS 1,000 ML IV SCH; -LIDOCAINE 1% (10MG/ML) FOR IV START INTRADERMA PRN; +Pre Op ABX Message 1 EACH MISC MISCELLANE ONE
[2022-11-06] MEDS ORDERED: BUPIVACAINE (PF) 0.25% 30 ML VIAL SQ ONE (07:31)
[2022-11-06] MEDS ORDERED: LIDOCAINE 2%-EPI 1:100,000 20 ML VIAL SQ ONE (07:31)
[2022-11-06] MEDS ORDERED: IOPAMIDOL-370 100ML BTL MISCELLANE ONE ×2 (07:33)
[2022-11-06] MEDS ORDERED: methylPREDNISolone ACETATE 40 MG/ML 1 ML VIAL INJ ONE (07:34)
[2022-11-06 07:36] VITALS: TEMP 97.2
--- NOTE | 2022-11-06 07:50 | P.OP ---
Date of Procedure: 11/06/22 Preoperative Diagnosis: 1. L SIJ PAIN 2. LOW BACK PAIN Postoperative Diagnosis: 1. L SIJ PAIN 2. LOW BACK PAIN Procedure(s) Performed: 1. LEFT SIJ INJECTION UNDER FLUOROSCOPIC GUIDANCE Implants: NONE Anesthesia: [facility] Surgeon: Jesús Gomez Estimated Blood Loss (ml): 2 IV fluids (ml): 0 Urine output (ml): 0 Pathology: none sent Condition: stable Disposition: PACU Indications for Procedure: Mr. Daniels is presenting for evaluation of left sacroiliitis. It was my pleasure to have seen and examined Mr. Daniels. In our visit today we have had a chance to go over subjective complaints, physical examination findings and treatments including the natural course history without intervention and various interventional options. The patients imaging demonstrates: XRay taken on 07/26/22 of Lumbar Spine & Pelvis: Multiple Views of the lumbar spine obtained and reviewed and demonstrate normal sagittal as well as coronal alignment. Disc heights and vertebral body heights are maintained. There is no fracture or dislocation noted. No listhesis noted. AP pelvis demonstrates congruent level pelvis no fracture or dislocation MRI of lumbar spine taken on 08/08/22 at outside facility: Images reviewd with pt Mild degenerative changes of L4-5 with hydration loss. Some broad based disc bulging but no significant stenosis or nerve encroachment noted. No fractures no lesions. Remaining levels are of normal height and hydration. Nothing to explain his sx. MRI of thoracic spine taken on 09/06/22 at outside facility: On physical exam, Mr. Daniels demonstrates: Since the time of the last appointment the patient reports that his symptoms have not changed and that he is still having "restroom" problems. He reports increased low back pain, primarily on the left side, radiating into the bilateral lower extremities (worse on left as well).He denies any numbness or tingling extending into the lower extremities at this time. Patient notes his symptoms are exacerbated with prolonged standing or activity which is making completion of his daily tasks difficult. I have explained to the patient that as their condition progresses it will cause further neurological deficits and eventual paralysis. Based on the patients imaging, physical exam, and the rapid progression and disabling nature of their symptoms, at this time I recommend surgery in the form of a: Left SI Joint injection I discussed the risk and benefits of this procedure at length with Mr. Daniels. The patient agreed to considered pursuing the procedure abovementioned. Prior to surgery, she should follow up with her PCP (Cardio, ID, IM etc) for clearance. Questions were invited and answered, and the patient wishes to proceed as outlined below. Currently, I am recommendin.Left SI Joint injection Description of Procedure: Bilateral SIJ injection The patient was seen and examined in the preoperative area. All preoperative protocols were followed. Informed consent was obtained, risks and benefits of the procedure were discussed at length. Risks including bleeding infection damage to the surrounding tissue and risk of reoperation were discussed with the patient. Risk of anesthesia up to and including was discussed with the patient. These are outlined in the risk review. They were willing to accept thes e risks and all of the risks of surgery. The patient was seen and evaluated by the anesthesia team who deemed them fit for surgery. The site was marked, the patient was willing to proceed with the procedure. The patient was transferred to the operative suite by the Department of anesthesia. They were then drifted off to sleep by the department anesthesia and sedation with local was performed. The patient tolerated this well. Once confirmation of lines and ventilation the patient was transferred to a prone Patrick table very carefully. All bony prominences including wrists, elbows, axilla, chest, hips, and thighs, and feet were padded very well. Special attention was paid to the genitalia and these were padded accordingly. SCDs were placed on bilateral lower extremities and were connected. Arms were well padded and placed on arm boards up and out in the 90/90 position. Once in position, again we confirmed good ventilation capabilities and that lines were running appropriately. The patient's lumbopelvic spine was then exposed. 1010s were placed outlining the incision site. Standard alcohol was used to clean the incision site and allowed to dry. C-arm was used to biomark the patient and confirm level for incision which was marked with a skin marker. Operative briefing was performed with all teams and everyone in agreement to proceed. The patient was then prepped and draped in a normal sterile fashion. Timeout was then performed and all parties were in agreement with the procedure to be performed. Biplanar fluoroscopy was used to identify the LEFT SI joints which were then ac cessed with a 18-gauge needle after anesthetic was placed into the subcutaneous tissue in the form of 1% with epinephrine of lidocaine along with a mixture of cortical percent Marcaine without epinephrine. Once there is good anesthesia and the SI joints were accessed Isovue was used to confirm within the joint space. Once this was confirmed 40 of Kenalog along with a mixture of lidocaine and Marcaine were injected into the SI joint. Patient remained stable the entire time without any radicular symptoms during the injection phase. The needles were withdrawn and the area cleaned and Band-Aids placed. The patient was transferred back to their hospital bed atraumatically. Patient was then awakened and extubated by the department of anesthesia having tolerated the procedure very well with no complications. They were transferred to the postoperative care unit in stable condition.
[2022-11-06 07:52] VITALS: PULSE 79; RESP 16
[2022-11-06 08:03] VITALS: BP 126/87
--- NOTE | 2022-11-06 08:12 | FL ---
Intraoperative/procedural fluoroscopic services were provided. Total fluoroscopy time is 2 seconds wi th a total of 3 submitted images to PACS. Please see the operative/procedural note for further detail s. DAP: [id number] mGym2
== END 2022-11-06 08:12 | disposition home or self-care (01) ==
LOC: OR 07:09
PROVIDERS: ATTEND Orthopaedic Surgery
DX: M46.1 Sacroiliitis, not elsewhere classified (principal); M13.88 Other specified arthritis, other site; M51.36 Other intervertebral disc degeneration, lumbar region; K21.9 Gastro-esophageal reflux disease without esophagitis; Z78.9 Other specified health status; Z86.16 Personal history of COVID-19
CPT/HCPCS: 27096; J1030; Q9967; J0665

== ENCOUNTER → 2023-03-07 | Outpatient (CLI) | payer OTHER ==
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
== END | disposition home or self-care (01) ==
LOC: RADXRMAIN 09:44
PROVIDERS: ATTEND Emergency Medicine
DX: M25.561 Pain in right knee (principal)

== ENCOUNTER → 2023-03-19 | Outpatient (CLI) | payer OTHER ==
--- NOTE | 2023-03-21 09:28 | MR ---
EXAMINATION TYPE: MR knee RT wo con DATE OF EXAM: 03/19/2023 COMPARISON: Right knee radiographs 03/07/2023. Right knee radiographs 03/13/2023 HISTORY: Right knee pain, history of meniscus repair 2015. TECHNIQUE: Multiplanar, multisequence imaging of the knee is performed without contrast. FINDINGS: Medial meniscus: Intact. Medial compartment cartilage: Mild thinning of the medial compartment cartilage. Medial collateral ligament: Intact. Lateral meniscus: Intact. Lateral compartment cartilage: Normal. Lateral collateral ligament: Intact. Patellofemoral alignment: Normal. Patellofemoral compartment cartilage: Normal. Extensor mechanism: Normal. Anterior cruciate ligament: Intact. Posterior cruciate ligament: Intact. Bone marrow: Normal. Soft tissues: Normal. No joint effusion. No Domingo's cyst. Neurovascular: Normal. IMPRESSION: 1. Mild chondromalacia medial tibiofemoral compartment. 2. Intact cruciates, collaterals, and menisci
== END | disposition home or self-care (01) ==
LOC: RADMRIMAIN 20:45
PROVIDERS: ATTEND Orthopaedic Surgery
DX: M94.261 Chondromalacia, right knee (principal)

== ENCOUNTER 2023-05-01 14:04 | Emergency (ER) | payer OTHER ==
[2023-05-01 14:37] VITALS: RESP 18; TEMP 98.4
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
[2023-05-01] MEDS ORDERED: ACETAMINOPHEN TAB 500 MG TAB PO STA (15:13)
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
[2023-05-01] MEDS ORDERED: KETOROLAC 15 MG/ML 1 ML VIAL IM STA (16:05)
[2023-05-01 16:41] VITALS: BP 135/84; PULSE 74
== END 2023-05-01 16:30 | disposition home or self-care (01) ==
LOC: EC 14:04
DX: S06.0X0A Concussion without loss of consciousness, initial encounter (principal); R40.2410 Glasgow coma scale score 13-15, unspecified time; F32.A Depression, unspecified; Z79.899 Other long term (current) drug therapy; V89.2XXA Person injured in unspecified motor-vehicle accident, traffic, initial encounter; Y92.410 Unspecified street and highway as the place of occurrence of the external cause
CPT/HCPCS: 99284; 96372; 72125; 70450; J1885

== ENCOUNTER 2023-08-01 09:01 | Emergency (ER) | payer OTHER ==
[2023-08-01 09:36] VITALS: TEMP 98.2
[2023-08-01] MEDS: SODIUM CHLORIDE 0.9% 1,000 ML IV STA (09:55)
[2023-08-01] MEDS: PANTOPRAZOLE 40 MG/10 ML VIAL IVP STA (09:56)
[2023-08-01] MEDS: MORPHINE SULFATE 4 MG/ML SYRINGE IVP STA (10:04)
[2023-08-01] MEDS: ONDANSETRON 4 MG/2 ML VIAL IVP STA (10:05)
[2023-08-01 10:35] LABS: Partial Thromboplastin Time 25.9 sec (22.0-30.0); Prothrombin Time 10.7 sec (10.0-12.5)
[2023-08-01 10:36] LABS: Basophils % (A) 1 %; Eosinophils # (A) 0.2 k/uL (0-0.7); Eosinophils % (A) 2 %; HCT 50.3 % (39.0-53.0); HGB 16.7 gm/dL (13.0-17.5); Lymphocytes # (A) 1.7 k/uL (1.0-4.8); Lymphocytes % (A) 26 %; MCH 29.3 pg (25.0-35.0); MCHC 33.2 g/dL (31.0-37.0); MCV 88.3 fL (80.0-100.0); Mean Platelet Volume 8.2; Monocytes # (A) 0.5 k/uL (0-1.0); Monocytes % (A) 7 %; Neutrophils # (A) 4.2 k/uL (1.3-7.7); Neutrophils % (A) 62 %; Platelet Count 278 k/uL (150-450); RDW 11.9 % (11.5-15.5); WBC 6.7 k/uL (3.8-10.6)
[2023-08-01 10:38] LABS: Appearance,Urine Clear (Clear); Bilirubin,Urine Negative (Negative); Blood,Urine Negative (Negative); Color,Urine Light Yellow; Glucose,Urine (UA) Negative (Negative); Ketones,Urine Negative (Negative); Leukocyte Esterase,Urine Negative (Negative); Nitrite,Urine Negative (Negative); PH, Urine 5.5 (5.0-8.0); Protein,Urine Negative (Negative); Specific Gravity,Urine 1.028 (1.001-1.035); Urobilinogen,Urine <2.0 mg/dL (<2.0)
[2023-08-01 10:47] LABS: ALT 41 U/L (4-49); AST 26 U/L (17-59); African American GFR (CKD) >90 (>60 ml/min/1.73 sqM); Alkaline Phosphatase 127 U/L (38-126); Amylase 56 U/L (30-110); Anion Gap 10 mmol/L; Blood Urea Nitrogen 21 mg/dL (9-20); Calcium 9.2 mg/dL (8.4-10.2); Carbon Dioxide 21 mmol/L (22-30); Chloride 107 mmol/L (98-107); Glucose 106 mg/dL (74-99); Lipase 66 U/L (23-300); Non-African American GFR(CKD) >90 (>60 ml/min/1.73 sqM); Potassium 4.7 mmol/L (3.5-5.1); Sodium 138 mmol/L (137-145); Total Bilirubin 0.6 mg/dL (0.2-1.3); Total Protein 6.8 g/dL (6.3-8.2)
[2023-08-01 11:01] VITALS: RESP 18
--- NOTE | 2023-08-01 12:03 | CT ---
EXAMINATION TYPE: CT abdomen pelvis w con CT DLP: 1459.7 mGycm, Automated exposure control for dose reduction was used. DATE OF EXAM: 08/01/2023 10:45 AM COMPARISON: CT abdomen pelvis most recent from CLINICAL INDICATION:Male, 27 years old with history of abdominal pain. Right flank/RLQ; RLQ abdominal pain, constipation and diarrhea. TECHNIQUE: Axial CT abdomen pelvis w con;Sagittal and coronal reformats were created on a separate w orkstation. Contrast used:100ml mL of Isovue 300 with IV Contrast, (none if empty) Oral contrast used: without Oral Contrast (none if empty) FINDINGS: LOWER CHEST: Unremarkable ABDOMEN LIVER: Unremarkable GALLBLADDER AND BILE DUCTS: Unremarkable. PANCREAS: Unremarkable. SPLEEN: Unremarkable. ADRENAL GLANDS: Unremarkable. KIDNEYS AND URETERS: No evidence of hydronephrosis or renal calculus. The ureters are unremarkable. PELVIS BLADDER: Unremarkable REPRODUCTIVE: Unremarkable. ABDOMEN & PELVIS STOMACH AND BOWEL: A normal appendix is identified. Bowel loops are normal caliber in appearance. No evidence of bowel obstruction. PERITONEUM/RETROPERITONEUM: No evidence of pneumoperitoneum or free fluid. VASCULATURE: No evidence of aortic aneurysm. MUSCULOSKELETAL: No acute osseous abnormalities LYMPH NODES: No gross evidence for lymphadenopathy. SOFT TISSUE/ABDOMINAL WALL: Unremarkable IMPRESSION: 1. No CT evidence of an acute abdominal process.
--- NOTE | 2023-08-01 12:17 | ED ---
General Adult HPI - General Chief complaint: Abdominal Pain Stated complaint: Abd Pain Time Seen by Provider: 08/01/23 09:44 Source: patient, RN notes reviewed, old records reviewed Mode of arrival: ambulatory Limitations: no limitations - History of Present Illness Initial comments: Is a 27-year-old male who presents emergency department complaining of abdominal pain. States that started this morning. Is a history of chronic back pain but states that this pain seems to be more over his right flank and right lower quadrant. Denies any pain, shortness of breath, dysuria, hematuria. States he may be slightly constipated. Denies any history of abdominal surgeries. Is uncertain if this is his back pain or abdominal pain. Presents for further evaluation. Denies nausea or vomiting or fevers. - Related Data Home Medications Medication Instructions Recorded Confirmed Celecoxib [CeleBREX] 200 mg PO BID 08/01/23 08/01/23 Pantoprazole [Protonix] 40 mg PO HS 08/01/23 08/01/23 Allergies Allergy/AdvReac Type Severity Reaction Status Date / Time No Known Allergies Allergy Verified 08/01/23 10:53 Review of Systems ROS Statement: Those systems with pertinent positive or pertinent negative responses have been documented in the HPI. Review of Systems: CONST: Denies fever EYES: Denies blurry vision ENT: Denies nasal congestion C/V: Denies Chest pain RESP: Denies shortness of breath GI: Endorses abdominal pain : Denies dysuria SKIN: Denies rash. MSK: Denies joint pain. NEURO: Denies headache ROS Other: All systems not noted in ROS Statement are negative. Past Medical History Past Medical History: Deep Vein Thrombosis (DVT), Eye Disorder, Musculoskeletal Disorder, Skin Disorder Additional Past Medical History / Comment(s): HX OF FX LT ARM (2-3 TIMES), HX OF SHATTERED LT SHOULDER. HX DISLOCATED LT SHOULDER 07/2017, HAS TORN LABRUM CURRENTLY. HX POSS ECZEMA. HX POSS DVT. SCRATCHED CORNEA RT EYE 11/2017, USING EYE DROPS DIRECTED. History of Any Multi-Drug Resistant Organisms: None Reported Past Surgical History: Orthopedic Surgery Additional Past Surgical History / Comment(s): LEFT SHOULDER RECONSTRUCTION. RT KNEE ARTHROSCOPY. JAW FX WIRED. Past Anesthesia/Blood Transfusion Reactions: No Reported Reaction Additional Past Anesthesia/Blood Transfusion Reaction / Comment(s): MOTHER = PONV. Past Psychological History: Depression Smoking Status: Never smoker Past Alcohol Use History: Occasional Past Drug Use History: None Reported - Past Family History Mother Family Medical History: No Reported History General Exam - General Exam Comments Initial Comments: General: Appears in no acute distress. HEAD: Normal with no signs of head trauma. EYES: PERRLA, EOMI, conjunctiva normal, no discharge. ENT: Hearing grossly intact, normal oropharynx. RESPIRATORY: Clear breath sounds bilaterally. No wheezes, rales, or rhonchi. C/V: Regular rate and rhythm. S1 and S2 auscultated, no edema, peripheral pulses 2+ and intact throughout ABD: Abdomen soft, nondistended. Tender to palpation of the right lower quadrant and right flank. No guarding. No radiation. No peritoneal signs. No rebound tenderness. EXT: Normal range of motion, no obvious deformity SKIN: No rashes or lesions observed on exposed skin. NEURO: Alert and oriented x 4. Limitations: no limitations Course Vital Signs 08/01/23 08/01/23 08/01/23 09:05 09:52 10:48 Temperature 98.2 F Pulse Rate 88 82 Respiratory 20 18 Rate Blood Pressure 129/79 115/79 130/92 O2 Sat by Pulse 99 97 Oximetry 08/01/23 12:07 Temperature Pulse Rate 80 Respiratory 18 Rate Blood Pressure 130/83 O2 Sat by Pulse 97 Oximetry Medical Decision Making - Medical Decision Making Was pt. sent in by a medical professional or institution (FERNANDO Pacheco, VOICE WRITING REPORTER, urgent care, hospital, or fci...) When possible be specific @ -No Did you speak to anyone other than the patient for history (EMS, parent, family, police, friend...)? What history was obtained from this source @ -No Did you review nursing and triage notes (agree or disagree)? Why? @ -I reviewed and agree with nursing and triage notes Were old charts reviewed (outside hosp., previous admission, EMS record, old EK G, old radiological studies, urgent care reports/EKG's, fci records)? Report findings @ -Old charts reviewed Differential Diagnosis (chest pain, altered mental status, abdominal pain women, abdominal pain men, vaginal bleeding, weakness, fever, dyspnea, syncope, headache, dizziness, GI bleed, back pain, seizure, CVA, palpatations, mental health, musculoskeletal)? @ -Differential Abdominal Pain Men: Appendicitis, cholecystitis, diverticulosis, ischemic bowel, pancreatitis, hepatitis, UTI, gastroenteritis, AAA, incarcerated hernia, bowel obstruction, constipation, inflammatory bowel, hepatitis, peptic ulcer disease, splenic infarction, perforated viscus, testicular torsion, this is not meant to be an all-inclusive list EKG interpreted by me (3pts min.). @ -Not done X-rays interpreted by me (1pt min.). @ -None done CT interpreted by me (1pt min.). @ -CT abdomen pelvis with contrast negative for any obvious acute intra- abdominal or pelvic process. U/S interpreted by me (1pt. min.). @ -None done What testing was considered but not performed or refused? (CT, X-rays, U/S, labs)? Why? @ -None What meds were considered but not given or refused? Why? @ -None Did you discuss the management of the patient with other professionals (professionals i.e. , PA, VOICE WRITING REPORTER, lab, RT, psych nurse, social service director, date pitter, teacher, armor officer, manager case)? Give summary @ -No Was smoking cessation discussed for >3mins.? @ -No Was critical care preformed (if so, how long)? @ -No Were there social determinants of health that impacted care today? How? (Homelessness, low income, unemployed, alcoholism, drug addiction, transportation, low edu. Level, literacy, decrease access to med. care, long term, rehab)? @ -No Was there de-escalation of care discussed even if they declined (Discuss DNR or withdrawal of care, Hospice)? DNR status @ -No What co-morbidities impacted this encounter? (DM, HTN, Smoking, COPD, CAD, Cancer, CVA, ARF, Chemo, Hep., AIDS, mental health diagnosis, sleep apnea, morbid obesity)? @ -Chronic back pain Was patient admitted / discharged? Hospital course, mention meds given and route, prescriptions, significant lab abnormalities, going to OR and other pertinent info. @ -Patient presents complaining of right sided abdominal pain. Could be radicular from back pain but cannot rule out other intra-abdominal process at this time. Vital signs within acceptable limits. We will obtain abdominal workup as well as symptomatically treat the patient with IV fluids, Protonix, Zofran, and analgesia medications. Patient in agreement this plan. Patient's laboratory studies all within acceptable limits. CT abdomen pelvis negative for any obvious acute process. On reevaluation, patient is feeling improved. We discussed his workup. Diagnosis is abdominal pain of unknown etiology. Could be related to back pain. Recommended rest, and he will be given a work note as well as a starter pack Tylenol 3. Patient agreement this plan. I instructed the patient to follow up with their PCP in the next 1-3 days. I explained that the patient should return to the emergency department if they experience any worsening symptoms. Strict return precautions were discussed with the patient. The patient expressed understanding of these instructions. I answe red all questions that the patient had. The patient was discharged home in good condition with their prescriptions and follow up information. Undiagnosed new problem with uncertain prognosis? @ -No Drug Therapy requiring intensive monitoring for toxicity (Heparin, Nitro, Insulin, Cardizem)? @ -No Were any procedures done? @ -No Diagnosis/symptom? @ -Abdominal pain of unknown etiology Acute, or Chronic, or Acute on Chronic? @ -Acute Uncomplicated (without systemic symptoms) or Complicated (systemic symptoms)? @ -Uncomplicated Side effects of treatment? @ -No Exacerbation, Progression, or Severe Exacerbation? @ -No Poses a threat to life or bodily function? How? (Chest pain, USA, [place], pneumonia, PE, COPD, DKA, ARF, appy, cholecystitis, CVA, Diverticulitis, Homicidal, Suicidal, threat to staff... and all critical care pts) @ -Unlikely - Lab Data Result diagrams: 08/01/23 10:17 08/01/23 10:17 Lab Results 08/01/23 08/01/23 08/01/23 Range/Units 10:17 10:17 10:17 WBC 6.7 (3.8-10.6) k/uL RBC 5.70 (4.30-5.90) m/uL Hgb 16.7 (13.0-17.5) gm/dL Hct 50.3 (39.0-53.0) % MCV 88.3 (80.0-100.0) fL MCH 29.3 (25.0-35.0) pg MCHC 33.2 (31.0-37.0) g/dL RDW 11.9 (11.5-15.5) % Plt Count 278 (150-450) k/uL MPV 8.2 Neutrophils % 62 % Lymphocytes % 26 % Monocytes % 7 % Eosinophils % 2 % Basophils % 1 % Neutrophils # 4.2 (1.3-7.7) k/uL Lymphocytes # 1.7 (1.0-4.8) k/uL Monocytes # 0.5 (0-1.0) k/uL Eosinophils # 0.2 (0-0.7) k/uL Basophils # 0.0 (0-0.2) k/uL PT 10.7 (10.0-12.5) sec INR 1.0 (<1.2) APTT 25.9 (22.0-30.0) sec Sodium (137-145) mmol/L Potassium (3.5-5.1) mmol/L Chloride (98-107) mmol/L Carbon Dioxide (22-30) mmol/L Anion Gap mmol/L BUN (9-20) mg/dL Creatinine (0.66-1.25) mg/dL Est GFR (CKD-EPI)AfAm (>60 ml/min/1.73 sqM) Est GFR (CKD-EPI)NonAf (>60 ml/min/1.73 sqM) Glucose (74-99) mg/dL Plasma Lactic Acid William (0.7-2.0) mmol/L Calcium (8.4-10.2) mg/dL Total Bilirubin (0.2-1.3) mg/dL AST (17-59) U/L ALT (4-49) U/L Alkaline Phosphatase (38-126) U/L Total Protein (6.3-8.2) g/dL Albumin (3.5-5.0) g/dL Amylase (30-110) U/L Lipase (23-300) U/L Urine Color Light Yellow Urine Appearance Clear (Clear) Urine pH 5.5 (5.0-8.0) Ur Specific [place] 1.028 (1.001-1.035) Urine Protein Negative (Negative) Urine Glucose (UA) Negative (Negative) Urine Ketones Negative (Negative) Urine Blood Negative (Negative) Urine Nitrite Negative (Negative) Urine Bilirubin Negative (Negative) Urine Urobilinogen <2.0 (<2.0) mg/dL Ur Leukocyte Esterase Negative (Negative) 08/01/23 08/01/23 Range/Units 10:17 10:17 WBC (3.8-10.6) k/uL RBC (4.30-5.90) m/uL Hgb (13.0-17.5) gm/dL Hct (39.0-53.0) % MCV (80.0-100.0) fL MCH (25.0-35.0) pg MCHC (31.0-37.0) g/dL RDW (11.5-15.5) % Plt Count (150-450) k/uL MPV Neutrophils % % Lymphocytes % % Monocytes % % Eosinophils % % Basophils % % Neutrophils # (1.3-7.7) k/uL Lymphocytes # (1.0-4.8) k/uL Monocytes # (0-1.0) k/uL Eosinophils # (0-0.7) k/uL Basophils # (0-0.2) k/uL PT (10.0-12.5) sec INR (<1.2) APTT (22.0-30.0) sec Sodium 138 (137-145) mmol/L Potassium 4.7 (3.5-5.1) mmol/L Chloride 107 (98-107) mmol/L Carbon Dioxide 21 L (22-30) mmol/L Anion Gap 10 mmol/L BUN 21 H (9-20) mg/dL Creatinine 0.59 L (0.66-1.25) mg/dL Est GFR (CKD-EPI)AfAm >90 (>60 ml/min/1.73 sqM) Est GFR (CKD-EPI)NonAf >90 (>60 ml/min/1.73 sqM) Glucose 106 H (74-99) mg/dL Plasma Lactic Acid William 1.3 (0.7-2.0) mmol/L Calcium 9.2 (8.4-10.2) mg/dL Total Bilirubin 0.6 (0.2-1.3) mg/dL AST 26 (17-59) U/L ALT 41 (4-49) U/L Alkaline Phosphatase 127 H (38-126) U/L Total Protein 6.8 (6.3-8.2) g/dL Albumin 4.0 (3.5-5.0) g/dL Amylase 56 (30-110) U/L Lipase 66 (23-300) U/L Urine Color Urine Appearance (Clear) Urine pH (5.0-8.0) Ur Specific [place] (1.001-1.035) Urine Protein (Negative) Urine Glucose (UA) (Negative) Urine Ketones (Negative) Urine Blood (Negative) Urine Nitrite (Negative) Urine Bilirubin (Negative) Urine Urobilinogen (<2.0) mg/dL Ur Leukocyte Esterase (Negative) Disposition Clinical Impression: Abdominal pain of unknown etiology Disposition: HOME SELF-CARE Condition: Good Is patient prescribed a controlled substance at d/c from ED?: No Referrals: None,Stated [Primary Care Provider] - 1-2 days Time of Disposition: 12:17
[2023-08-01] MEDS: ACET/COD 300 MG/30 MG STARTER PACK 6 TAB BTL PO STA (12:23)
[2023-08-01 12:27] VITALS: BP 130/83; PULSE 80
== END 2023-08-01 12:26 | disposition home or self-care (01) ==
LOC: EC 09:01
DX: K59.00 Constipation, unspecified (principal)
CPT/HCPCS: 36415; 80053; 82150; 83605; 83690; 85025; 85610; 85730; 81003; 74177; 99285; 96374; 96375 ×2; 96361; J2270; J2405; C9113; Q9967

== ENCOUNTER → 2024-04-04 | Outpatient (CLI) | payer OTHER ==
--- NOTE | 2024-04-07 22:36 | MR ---
EXAMINATION TYPE: MR knee RT wo con DATE OF EXAM: 04/04/2024 COMPARISON: Prior MRI right knee March 19, 2023 HISTORY: Right knee medial pain, locking, and swelling for a few years, history of surgery TECHNIQUE: Multiplanar, multisequence images of the knee is performed without IV contrast. FINDINGS: MEDIAL MENISCUS: Anterior and posterior horns are intact without tear. LATERAL MENISCUS: Anterior and posterior horns are intact without tear. CRUCIATE LIGAMENTS: The anterior and posterior cruciate ligaments are intact and unremarkable. COLLATERAL LIGAMENTS: The medial collateral ligament and lateral collateral ligament complex are inta ct and unremarkable. EXTENSOR MECHANISM: Visualized quadriceps and patellar tendons are intact. EFFUSION: No significant suprapatellar joint effusion. POPLITEAL CYST: No popliteal/mcmillan cyst. TRICOMPARTMENT SPACES: Mild/moderate narrowing medial tibiofemoral compartment redemonstrated. No sig nificant spurring. CARTILAGE: Some cartilaginous loss medial tibiofemoral compartment redemonstrated. BONE MARROW SIGNAL: No focal abnormal marrow signal is appreciated. OTHER: No additional significant abnormality is appreciated. IMPRESSION: No meniscal or ligamentous tear. Stable mild degenerative changes in the medial tibiofemo ral compartment. [facility], Workstation: [id number], 04/07/2024 10:34 PM
== END | disposition home or self-care (01) ==
LOC: RADMRIMAIN 15:41
PROVIDERS: ATTEND Orthopaedic Surgery
DX: M17.11 Unilateral primary osteoarthritis, right knee (principal)

== ENCOUNTER 2024-04-10 08:35 | Emergency (ER) | payer OTHER ==
--- NOTE | 2024-04-10 08:55 | ED ---
URI HPI - General Chief Complaint: Upper Respiratory Infection Stated Complaint: Chest pain,Dizziness Time Seen by Provider: 04/10/24 08:54 Source: patient, RN notes reviewed Mode of arrival: ambulatory Limitations: no limitations - History of Present Illness Initial Comments: This is a 28-year-old male with a stable medical history presenting to the emerg ency department for chief complaint of nasal congestion, cough, rhinorrhea, chest pain and intermittent fever over the past few days. Patient states that symptoms feel similar as when he had COVID-pneumonia last year. He denies recent prolonged travel, recent surgeries, history of DVT or PE. He has not taken any medications today to alleviate his symptoms. - Related Data Home Medications Medication Instructions Recorded Confirmed Celecoxib [CeleBREX] 200 mg PO BID 08/01/23 08/01/23 Pantoprazole [Protonix] 40 mg PO HS 08/01/23 08/01/23 Previous Rx's Medication Instructions Recorded Acetaminophen [Acetaminophen 8 hr] 650 mg PO Q8H #21 tab 04/10/24 Allergies Allergy/AdvReac Type Severity Reaction Status Date / Time No Known Allergies Allergy Verified 04/10/24 08:50 Review of Systems ROS Statement: Those systems with pertinent positive or pertinent negative responses have been documented in the HPI. ROS Other: All systems not noted in ROS Statement are negative. Past Medical History Past Medical History: Deep Vein Thrombosis (DVT), Eye Disorder, Musculoskeletal Disorder, Skin Disorder Additional Past Medical History / Comment(s): HX OF FX LT ARM (2-3 TIMES), HX OF SHATTERED LT SHOULDER. HX DISLOCATED LT SHOULDER 07/2017, HAS TORN LABRUM CURRENTLY. HX POSS ECZEMA. HX POSS DVT. SCRATCHED CORNEA RT EYE 11/2017, USING EYE DROPS DIRECTED. History of Any Multi-Drug Resistant Organisms: None Reported Past Surgical History: Orthopedic Surgery Additional Past Surgical History / Comment(s): LEFT SHOULDER RECONSTRUCTION. RT KNEE ARTHROSCOPY. JAW FX WIRED. Past Anesthesia/Blood Transfusion Reactions: No Reported Reaction Additional Past Anesthesia/Blood Transfusion Reaction / Comment(s): MOTHER = PONV. Past Psychological History: Depression Smoking Status: Never smoker Past Alcohol Use History: Occasional Past Drug Use History: None Reported - Past Family History Mother Family Medical History: No Reported History General Exam Limitations: no limitations General appearance: alert, in no apparent distress ENT exam: Present: normal exam, mucous membranes moist Neck exam: Present: normal inspection. Absent: tenderness, meningismus, lymphadenopathy Respiratory exam: Present: normal lung sounds bilaterally. Absent: respiratory distress, wheezes, rales, rhonchi, stridor Cardiovascular Exam: Present: normal rhythm, tachycardia, normal heart sounds. Absent: systolic murmur, diastolic murmur, rubs, gallop, clicks GI/Abdominal exam: Present: soft, normal bowel sounds. Absent: distended, tenderness, guarding, rebound, rigid Extremities exam: Present: normal inspection, full ROM, normal capillary refill. Absent: tenderness, pedal edema, joint swelling, calf tenderness Skin exam: Present: warm, dry, intact, normal color. Absent: rash Course Vital Signs 04/10/24 04/10/24 04/10/24 08:48 08:56 09:38 Temperature 98 F 101.5 F H Pulse Rate 134 H 125 H Respiratory 18 18 20 Rate Blood Pressure 139/76 157/95 O2 Sat by Pulse 98 97 Oximetry 04/10/24 10:29 Temperature 101.3 F H Pulse Rate 113 H Respiratory 20 Rate Blood Pressure 146/80 O2 Sat by Pulse 97 Oximetry Medical Decision Making - Medical Decision Making Was pt. sent in by a medical professional or institution (, PA, POTATO CHIP FRYER, urgent care, hospital, or half-way...) When possible be specific @ -No Did you speak to anyone other than the patient for history (EMS, parent, family, police, friend...)? What history was obtained from this source @ -No Did you review nursing and triage notes (agree or disagree)? Why? @ -I reviewed and agree with nursing and triage notes Were old charts reviewed (outside hosp., previous admission, EMS record, old EKG, old radiological studies, urgent care reports/EKG's, half-way records)? Report findings @ -No old charts were reviewed Differential Diagnosis (chest pain, altered mental status, abdominal pain women, abdominal pain men, vaginal bleeding, weakness, fever, dyspnea, syncope, headache, dizziness, GI bleed, back pain, seizure, CVA, palpatations, mental health, musculoskeletal)? @ -COVID 19, RSV, influenza, pneumonia, acute bronchitis, URI, this list is not all inclusive EKG interpreted by me (3pts min.). @ -Completed at 944 sinus tachycardia with a ventricular rate of 118, parable 166, QRS 97, QTc 374. X-rays interpreted by me (1pt min.). @ -Chest x-ray no acute cardiopulmonary process or disease CT interpreted by me (1pt min.). @ -None done U/S interpreted by me (1pt. min.). @ -None done What testing was considered but not performed or refused? (CT, X-rays, U/S, labs)? Why? @ -None What meds were considered but not given or refused? Why? @ -None Did you discuss the management of the patient with other professionals (professionals i.e. , PA, POTATO CHIP FRYER, lab, RT, psych nurse, social media marketer, retail product demo specialist, teacher, executive vice president and chief financial officer, case packer)? Give summary @ -No Was smoking cessation discussed for >3mins.? @ -No Was critical care preformed (if so, how long)? @ -No Were there social determinants of health that impacted care today? How? (Homelessness, low income, unemployed, alcoholism, drug addiction, transportation, low edu. Level, literacy, decrease access to med. care, [facility], rehab)? @ -No Was there de-escalation of care discussed even if they declined (Discuss DNR or withdrawal of care, Hospice)? DNR status @ -No What co-morbidities impacted this encounter? (DM, HTN, Smoking, COPD, CAD, Cancer, CVA, ARF, Chemo, Hep., AIDS, mental health diagnosis, sleep apnea, morbid obesity)? @ -None Was patient admitted / discharged? Hospital course, mention meds given and route, prescriptions, significant lab abnormalities, going to OR and other pertinent info. @ -Discharge. 28-year-old male presenting with URI symptoms. he is noted to be tachycardic on arrival and repeat vitals reveal a fever of 101.5 and tachycardia of 125. Patient is provided with Tylenol. COVID-positive. Chest x-ray unremarkable. Recommend the patient to use Tylenol Motrin as needed for symptomatic and fever relief in addition to increasing hydration and he minified air. Discussed with Dr. Soria Undiagnosed new problem with uncertain prognosis? @ -No Drug Therapy requiring intensive monitoring for toxicity (Heparin, Nitro, Insulin, Cardizem)? @ -No Were any procedures done? @ -No Diagnosis/symptom? @ -COVID19 Acute, or Chronic, or Acute on Chronic? @ -Acute Uncomplicated (without systemic symptoms) or Complicated (systemic symptoms)? @ -uncomplicated Side effects of treatment? @ -No Exacerbation, Progression, or Severe Exacerbation? @ -No Poses a threat to life or bodily function? How? (Chest pain, [place], [place], pneumonia, PE, COPD, DKA, ARF, appy, cholecystitis, CVA, Diverticulitis, Homicidal, Suicidal, threat to staff... and all critical care pts) @ -No - Lab Data Lab Results 04/10/24 Range/Units 09:00 Influenza Type A (PCR) Not Detected (Not Detectd) Influenza Type B (PCR) Not Detected (Not Detectd) RSV (PCR) Not Detected (Not Detectd) SARS-CoV-2 (PCR) Detected A (Not Detectd) Disposition Clinical Impression: COVID-19 Disposition: HOME SELF-CARE Condition: Good Instructions (If sedation given, give patient instructions): How to Recover from COVID-19 at Home (ED) Additional Instructions: Please return to the Emergency Department if symptoms worsen or any other concerns. Prescriptions: Acetaminophen [Acetaminophen 8 hr] 650 mg PO Q8H #21 tab Is patient prescribed a controlled substance at d/c from ED?: No Referrals: None,Stated [Primary Care Provider] - 1-2 days Time of Disposition: 10:18
[2024-04-10 09:38] VITALS: RESP 20
[2024-04-10] MEDS: ACETAMINOPHEN TAB 500 MG TAB PO STA (09:46)
--- NOTE | 2024-04-10 09:47 | XR ---
EXAMINATION TYPE: XR chest 2V DATE OF EXAM: 04/10/2024 9:41 AM COMPARISON: 10/20/2022 CLINICAL INDICATION: Male, 28 years old with history of cough, fever, TECHNIQUE: XR chest 2V view(s) obtained. FINDINGS: The heart size is normal. The pulmonary vasculature is normal. The lungs are clear. IMPRESSION: 1. No acute pulmonary process. [facility], , 04/10/2024 9:45 AM
[2024-04-10 10:31] VITALS: BP 146/80; PULSE 113; TEMP 101.3
== END 2024-04-10 10:31 | disposition home or self-care (01) ==
LOC: EC 08:35
DX: U07.1 COVID-19 (principal)
CPT/HCPCS: 71046; 87636; 99285

== ENCOUNTER 2024-04-14 23:37 | Emergency (ER) | payer OTHER ==
--- NOTE | 2024-04-14 23:57 | ED ---
Abdominal Pain HPI - General Source: patient, RN notes reviewed <Meagan Douglas - Last Filed: 04/14/24 23:56> <Larry Knox - Last Filed: 04/15/24 03:47> - General Stated Complaint: abd pain Time Seen by Provider: 04/14/24 23:49 - History of Present Illness Initial Comments: Quick [id number] male presenting to the emergency department for complaint of diffuse abdominal pain described as a pressure that began yesterday morning. Last bowel movement was yesterday morning. Denies previous surgeries of his abdomen. Denies nausea, vomiting, chills. (Meagan Douglas) Dictation was produced using [employer] dictation software. please excuse any grammatical, word or spelling errors. Chief Complaint: 28-year-old male with epigastric pain History of Present Illness: Patient 28-year-old male with no significant past medical history resents with epigastric pain for 1 to 2 days. Patient states the pain is feeling like it is in his whole abdomen. Complains of nausea. No vomiting. He had a normal bowel movement today. Recently diagnosed with COVID- 19. Denies any history of abdominal surgery. The ROS documented in this emergency department record has been reviewed and confirmed by me. Those systems with pertinent positive or negative responses h ave been documented in the HPI. All other systems are other negative and/or noncontributory. (Larry Knox) - Related Data Home Medications Medication Instructions Recorded Confirmed Celecoxib [CeleBREX] 200 mg PO BID 08/01/23 08/01/23 Pantoprazole [Protonix] 40 mg PO HS 08/01/23 08/01/23 Previous Rx's Medication Instructions Recorded Acetaminophen [Acetaminophen 8 hr] 650 mg PO Q8H #21 tab 04/10/24 Allergies Allergy/AdvReac Type Severity Reaction Status Date / Time No Known Allergies Allergy Verified 04/14/24 23:53 Review of Systems ROS Other: All systems not noted in ROS Statement are negative. <Meagan Douglas - Last Filed: 04/14/24 23:56> ROS Other: All systems not noted in ROS Statement are negative. <Larry Knox - Last Filed: 04/15/24 03:47> ROS Statement: Those systems with pertinent positive or pertinent negative responses have been documented in the HPI. Past Medical History Past Medical History: Deep Vein Thrombosis (DVT), Eye Disorder, Musculoskeletal Disorder, Skin Disorder Additional Past Medical History / Comment(s): HX OF FX LT ARM (2-3 TIMES), HX OF SHATTERED LT SHOULDER. HX DISLOCATED LT SHOULDER 07/2017, HAS TORN LABRUM CURRENTLY. HX POSS ECZEMA. HX POSS DVT. SCRATCHED CORNEA RT EYE 11/2017, USING EYE DROPS DIRECTED. History of Any Multi-Drug Resistant Organisms: None Reported Past Surgical History: Orthopedic Surgery Additional Past Surgical History / Comment(s): LEFT SHOULDER RECONSTRUCTION. RT KNEE ARTHROSCOPY. JAW FX WIRED. Past Anesthesia/Blood Transfusion Reactions: No Reported Reaction Additional Past Anesthesia/Blood Transfusion Reaction / Comment(s): MOTHER = PONV. Past Psychological History: Depression Smoking Status: Never smoker Past Alcohol Use History: Occasional Past Drug Use History: None Reported - Past Family History Mother Family Medical History: No Reported History <Meagan Douglas - Last Filed: 04/14/24 23:56> General Exam <Meagan Douglas - Last Filed: 04/14/24 23:56> <Larry Knox - Last Filed: 04/15/24 03:47> - General Exam Comments Initial Comments: Visual Physical Exam Vital signs reviewed General: Well-appearing, nontoxic, no acute distress. Head: Normocephalic, atraumatic Eyes: PERRLA, EOMI ENT: Airway patent Chest: Nonlabored breathing Skin: No visual rash, normal skin tone Neuro: Alert and oriented 3 Musculoskeletal: No gross abnormalities (Meagan Douglas) PHYSICAL EXAM: General Impression: Alert and oriented x3, not in acute distress HEENT: Normocephalic atraumatic, extra-ocular movements intact, pupils equal and reactive to light bilaterally, mucous membranes moist. Cardiovascular: Heart regular rate and rhythm Chest: Able to complete full sentences, no retractions, no tachypnea Abdomen: abdomen soft, n epigastric palpatory tenderness, non-distended, no organomegaly Musculoskeletal: Pulses present and equal in all extremities, no peripheral edgardo a Motor: no focal deficits noted Neurological: CN II-XII grossly intact, no focal motor or sensory deficits noted Skin: Intact with no visualized rashes Psych: Normal affect and mood (Larry Knox) Course Vital Signs 04/14/24 23:53 Temperature 97.9 F Pulse Rate 93 Respiratory 18 Rate Blood Pressure 130/54 O2 Sat by Pulse 97 Oximetry Medical Decision Making <Meagan Douglas - Last Filed: 04/14/24 23:56> - Lab Data Result diagrams: 04/15/24 00:36 04/15/24 00:36 <Larry Knox - Last Filed: 04/15/24 03:47> - Medical Decision Making I completed the quick note portion of this chart signed Meagan Douglas PA-C (Meagan Douglas) Was pt. sent in by a medical professional or institution (FERNANDO Pacheco, [employer], urgent care, hospital, or long term...) When possible be specific @ -No Did you speak to anyone other than the patient for history (EMS, parent, family, police, friend...)? What history was obtained from this source @ -No Did you review nursing and triage notes (agree or disagree)? Why? @ -I reviewed and agree with nursing and triage notes Were old charts reviewed (outside hosp., previous admission, EMS record, old EKG, old radiological studies, urgent care reports/EKG's, long term records)? Report findings @ -No old charts were reviewed Differential Diagnosis (chest pain, altered mental status, abdominal pain women, abdominal pain men, vaginal bleeding, musculoskeletal, weakness, fever, dyspnea, syncope, headache, dizziness, GI bleed, back pain, seizure, CVA, palpatations, mental health)? @ -Differential Abdominal Pain Men: Appendicitis, cholecystitis, diverticulosis, ischemic bowel, pancreatitis, hepatitis, UTI, gastroenteritis, AAA, incarcerated hernia, bowel obstruction, constipation, inflammatory bowel, hepatitis, peptic ulcer disease, splenic infarction, perforated viscus, testicular torsion, this is not meant to be an all-inclusive list EKG interpreted by me (3pts min.). @ -None done X-rays interpreted by me (1pt min.). @ -Abdominal x-ray is unremarkable CT interpreted by me (1pt min.). @ -CT abdomen pelvis shows no acute processes U/S interpreted by me (1pt. min.). @ -None done What testing was considered but not performed or refused? (CT, X-rays, U/S, labs)? Why? @ -None What meds were considered but not given or refused? Why? @ -None Was smoking cessation discussed for >3mins.? @ -No Were there social determinants of health that impacted care today? How? (Homelessness, low income, unemployed, alcoholism, drug addiction, transportation, low edu. Level, literacy, decrease access to med. care, senior living, rehab)? @ -No Was there de-escalation of care discussed even if they declined (Discuss DNR or withdrawal of care, Hospice)? DNR status @ -No What co-morbidities impacted this encounter? (DM, HTN, Smoking, COPD, CAD, Cancer, CVA, ARF, Chemo, Hep., AIDS, mental health diagnosis, sleep apnea, morbid obesity)? @ -None Was patient admitted / discharged? Hospital course, mention meds given and route, prescriptions, significant lab abnormalities, going to OR and other pertinent info. @ -28-year-old male presents with abdominal pain. Vital signs upon arrival are within acceptable limits. Patient has a soft nonsurgical abdomen however he does have diffuse palpatory abdominal tenderness mainly focal to the epigastric. Laboratory is unremarkable. No leukocytosis. Imaging studies are negative. Patient has no high risk features. Patient be discharged. Did you discuss the management of the patient with other professionals (professionals i.e. , PA, [employer], lab, RT, psych nurse, socially responsible investment adviser, trial lawyer, teacher, family preservation officer, case filler)? Give summary @ -No Was critical care preformed (if so, how long)? @ -No Undiagnosed new problem with uncertain prognosis? @ -No Drug Therapy requiring intensive monitoring for toxicity (Heparin, Nitro, Insulin, Cardizem)? @ -No Were any procedures done? @ -No Diagnosis/symptom? Acute, or Chronic, or Acute on Chronic? Uncomplicated (without systemic symptoms) or Complicated (systemic symptoms)? @ -Abdominal pain, NOS, no high risk features Side effects of treatment? @ -No Exacerbation, Progression, or Severe Exacerbation? @ -No Poses a threat to life or bodily function? How? (Chest pain, [place], [place], pneumonia, PE, COPD, DKA, ARF, appy, cholecystitis, CVA, Diverticulitis, Homicidal, Suicidal, threat to staff... and all critical care pts) @ -No (Bayudan,Larry D) - Lab Data Lab Results 04/15/24 04/15/24 Range/Units 00:36 00:36 WBC 8.7 (3.8-10.6) k/uL RBC 5.61 (4.30-5.90) m/uL Hgb 16.7 (13.0-17.5) gm/dL Hct 48.7 (39.0-53.0) % MCV 86.8 (80.0-100.0) fL MCH 29.7 (25.0-35.0) pg MCHC 34.2 (31.0-37.0) g/dL RDW 11.8 (11.5-15.5) % Plt Count 294 (150-450) k/uL MPV 7.9 Neutrophils % 62 % Lymphocytes % 29 % Monocytes % 6 % Eosinophils % 2 % Basophils % 1 % Neutrophils # 5.4 (1.3-7.7) k/uL Lymphocytes # 2.5 (1.0-4.8) k/uL Monocytes # 0.5 (0-1.0) k/uL Eosinophils # 0.2 (0-0.7) k/uL Basophils # 0.1 (0-0.2) k/uL Sodium 135 L (137-145) mmol/L Potassium 4.3 (3.5-5.1) mmol/L Chloride 100 (98-107) mmol/L Carbon Dioxide 24 (22-30) mmol/L Anion Gap 11 mmol/L BUN 14 (9-20) mg/dL Creatinine 0.62 L (0.66-1.25) mg/dL Est GFR (CKD-EPI)AfAm >90 (>60 ml/min/1.73 sqM) Est GFR (CKD-EPI)NonAf >90 (>60 ml/min/1.73 sqM) Glucose 131 H (74-99) mg/dL Calcium 9.2 (8.4-10.2) mg/dL Total Bilirubin 0.7 (0.2-1.3) mg/dL AST 29 (17-59) U/L ALT 48 (4-49) U/L Alkaline Phosphatase 94 (38-126) U/L Total Protein 7.3 (6.3-8.2) g/dL Albumin 4.5 (3.5-5.0) g/dL Amylase 57 (30-110) U/L Lipase 84 (23-300) U/L Disposition <Meagan Douglas - Last Filed: 04/14/24 23:56> Is patient prescribed a controlled substance at d/c from ED?: No Time of Disposition: 03:47 <Larry Knox - Last Filed: 04/15/24 03:47> Clinical Impression: Abdominal pain Disposition: HOME SELF-CARE Condition: Good Instructions (If sedation given, give patient instructions): Abdominal Pain (ED) Referrals: None,Stated [Primary Care Provider] - 1-2 days
[2024-04-15] MEDS: MORPHINE SULFATE 4 MG/ML SYRINGE IVP STA (01:23)
[2024-04-15 01:58] LABS: Basophils # (A) 0.1 k/uL (0-0.2); Basophils % (A) 1 %; Eosinophils # (A) 0.2 k/uL (0-0.7); Eosinophils % (A) 2 %; HCT 48.7 % (39.0-53.0); HGB 16.7 gm/dL (13.0-17.5); Lymphocytes # (A) 2.5 k/uL (1.0-4.8); Lymphocytes % (A) 29 %; MCH 29.7 pg (25.0-35.0); MCHC 34.2 g/dL (31.0-37.0); MCV 86.8 fL (80.0-100.0); Mean Platelet Volume 7.9; Monocytes # (A) 0.5 k/uL (0-1.0); Monocytes % (A) 6 %; Neutrophils # (A) 5.4 k/uL (1.3-7.7); Neutrophils % (A) 62 %; Platelet Count 294 k/uL (150-450); RBC 5.61 m/uL (4.30-5.90); RDW 11.8 % (11.5-15.5); WBC 8.7 k/uL (3.8-10.6)
[2024-04-15 02:22] LABS: ALT 48 U/L (4-49); AST 29 U/L (17-59); African American GFR (CKD) >90 (>60 ml/min/1.73 sqM); Albumin 4.5 g/dL (3.5-5.0); Alkaline Phosphatase 94 U/L (38-126); Amylase 57 U/L (30-110); Anion Gap 11 mmol/L; Blood Urea Nitrogen 14 mg/dL (9-20); Calcium 9.2 mg/dL (8.4-10.2); Carbon Dioxide 24 mmol/L (22-30); Chloride 100 mmol/L (98-107); Glucose 131 mg/dL (74-99); Lipase 84 U/L (23-300); Non-African American GFR(CKD) >90 (>60 ml/min/1.73 sqM); Potassium 4.3 mmol/L (3.5-5.1); Sodium 135 mmol/L (137-145); Total Bilirubin 0.7 mg/dL (0.2-1.3); Total Protein 7.3 g/dL (6.3-8.2)
--- NOTE | 2024-04-15 03:08 | XR ---
EXAM: XR Abdomen, 1 View CLINICAL HISTORY: ITS.REASON XR Reason: abdominal pain TECHNIQUE: Frontal supine view of the abdomen/pelvis. COMPARISON: No relevant prior studies available. FINDINGS: Gastrointestinal tract: Unremarkable. No dilation. Bones/joints: Unremarkable. No acute fracture. IMPRESSION: Normal abdominal x-ray.
--- NOTE | 2024-04-15 03:31 | CT ---
EXAM: CT Abdomen and Pelvis With Intravenous Contrast CLINICAL HISTORY: ITS.REASON CT Reason: abdominal pain TECHNIQUE: Axial computed tomography images of the abdomen and pelvis with intravenous contrast. CTDI is 27.7 mGy and DLP is 1432.9 mGy-cm. This CT exam was performed using one or more of the following dose reduction techniques: automated exposure control, adjustment of the mA and/or kV according to patient size, and/or use of iterative reconstruction technique. COMPARISON: No relevant prior studies available. FINDINGS: Lung bases: Unremarkable. No mass. No consolidation. ABDOMEN: Liver: Unremarkable. No mass. Gallbladder and bile ducts: Unremarkable. No calcified stones. No ductal dilation. Pancreas: Unremarkable. No mass. No ductal dilation. Spleen: Unremarkable. No splenomegaly. Adrenals: Unremarkable. No mass. Kidneys and ureters: Unremarkable. No solid mass. No hydronephrosis. Stomach and bowel: Unremarkable. No obstruction. No mucosal thickening. PELVIS: Appendix: No findings to suggest acute appendicitis. Bladder: Unremarkable. No mass. Reproductive: Unremarkable as visualized. ABDOMEN and PELVIS: Intraperitoneal space: Unremarkable. No free air. No significant fluid collection. Bones/joints: No acute fracture. No dislocation. Soft tissues: Unremarkable. Vasculature: Unremarkable. No abdominal aortic aneurysm. Lymph nodes: Unremarkable. No enlarged lymph nodes. IMPRESSION: Normal abdomen and pelvis CT.
[2024-04-15] MEDS: ACET/COD 300 MG/30 MG STARTER PACK 6 TAB BTL PO STA (03:52)
[2024-04-15 03:58] VITALS: BP 139/94; PULSE 84; RESP 17; TEMP 98.2
== END 2024-04-15 03:58 | disposition home or self-care (01) ==
LOC: EC 23:37
DX: R10.13 Epigastric pain (principal)
CPT/HCPCS: 36415; 80053; 82150; 83690; 85025; 74018; 74177; 99284; 96374; J2270; Q9967

== ENCOUNTER 2024-05-13 16:23 | Emergency (ER) | payer OTHER ==
[2024-05-13 16:40] VITALS: RESP 18; TEMP 98.9
--- NOTE | 2024-05-13 17:11 | ED ---
Back Pain HPI - General Chief Complaint: Back Pain/Injury Stated Complaint: Fall, back injury Time Seen by Provider: 05/13/24 16:45 Source: patient, RN notes reviewed, old records reviewed Limitations: no limitations - History of Present Illness Initial Comments: This is a 28 male to the ER for evaluation of back pain, patient has acute on chronic back pain history of sacroiliitis, had a recent fall a few days ago pain has been significantly worsening. Patient does follow with pain control and orthopedics and is here for pain management MD Complaint: back pain, fall -: days(s) (3) Place: home Radiation: none Severity: moderate Severity scale (1-10): 7 Quality: stabbing Consistency: constant Improves With: none Worsens With: none Context: fall Associated Symptoms: denies other symptoms - Related Data Home Medications Medication Instructions Recorded Confirmed Celecoxib [CeleBREX] 200 mg PO BID 08/01/23 08/01/23 Pantoprazole [Protonix] 40 mg PO HS 08/01/23 08/01/23 Previous Rx's Medication Instructions Recorded Acetaminophen [Acetaminophen 8 hr] 650 mg PO Q8H #21 tab 04/10/24 Ketorolac [Toradol] 10 mg PO Q6HR #20 tab 05/13/24 Allergies Allergy/AdvReac Type Severity Reaction Status Date / Time No Known Allergies Allergy Verified 05/13/24 16:40 Review of Systems ROS Statement: Those systems with pertinent positive or pertinent negative responses have been documented in the HPI. ROS Other: All systems not noted in ROS Statement are negative. Past Medical History Past Medical History: Deep Vein Thrombosis (DVT), Eye Disorder, Musculoskeletal Disorder, Skin Disorder Additional Past Medical History / Comment(s): HX OF FX LT ARM (2-3 TIMES), HX OF SHATTERED LT SHOULDER. HX DISLOCATED LT SHOULDER 07/2017, HAS TORN LABRUM CURRENTLY. HX POSS ECZEMA. HX POSS DVT. SCRATCHED CORNEA RT EYE 11/2017, USING EYE DROPS DIRECTED. History of Any Multi-Drug Resistant Organisms: None Reported Past Surgical History: Orthopedic Surgery Additional Past Surgical History / Comment(s): LEFT SHOULDER RECONSTRUCTION. RT KNEE ARTHROSCOPY. JAW FX WIRED. Past Anesthesia/Blood Transfusion Reactions: No Reported Reaction Additional Past Anesthesia/Blood Transfusion Reaction / Comment(s): MOTHER = PONV. Past Psychological History: Depression Smoking Status: Never smoker Past Alcohol Use History: Occasional Past Drug Use History: None Reported - Past Family History Mother Family Medical History: No Reported History General Exam Limitations: no limitations General appearance: alert, in no apparent distress Head exam: Present: atraumatic, normocephalic, normal inspection Eye exam: Present: normal appearance, PERRL, EOMI. Absent: scleral icterus, conjunctival injection, periorbital swelling ENT exam: Present: normal exam, mucous membranes moist Neck exam: Present: normal inspection. Absent: tenderness, meningismus, lymphadenopathy Respiratory exam: Present: normal lung sounds bilaterally. Absent: respiratory distress, wheezes, rales, rhonchi, stridor Cardiovascular Exam: Present: regular rate, normal rhythm, normal heart sounds. Absent: systolic murmur, diastolic murmur, rubs, gallop, clicks GI/Abdominal exam: Present: soft, normal bowel sounds. Absent: distended, tenderness, guarding, rebound, rigid Extremities exam: Present: normal inspection, full ROM, normal capillary refill. Absent: tenderness, pedal edema, joint swelling, calf tenderness Back exam: Present: normal inspection Neurological exam: Present: alert, oriented X3, CN II-XII intact Psychiatric exam: Present: normal affect, normal mood Skin exam: Present: warm, dry, intact, normal color. Absent: rash Course Vital Signs 05/13/24 16:36 Temperature 98.9 F Pulse Rate 85 Respiratory 18 Rate Blood Pressure 149/83 O2 Sat by Pulse 98 Oximetry - Reevaluation(s) Reevaluation #1: 05/13/24 17:10 Records reviewed Reevaluation #2: 05/13/24 17:10 Symptoms improved Reevaluation #3: 05/13/24 17:10 Informed of results questions answered Reevaluation #4: Was pt. sent in by a medical professional or institution (, PA, LABORATORY S[employer] CAR[employer]ER, urgent care, hospital, or skilled nursing...) When possible be specific @ -no Did you speak to anyone other than the patient for history (EMS, parent, family, police, friend...)? What history was obtained from this source @ -no Did you review nursing and triage notes (agree or disagree)? Why? @ -agree Are old charts reviewed (outside hosp., previous admission, EMS record, old EKG, old radiological studies, urgent care reports/EKG's, skilled nursing records)? Report findings @ -yes Differential Diagnosis (chest pain, altered mental status, abdominal pain women, abdominal pain men, vaginal bleeding, weakness, fever, dyspnea, syncope, headache, dizziness, GI bleed, back pain, seizure, CVA, palpatations, mental health, musculoskeletal)? @ -prior EKG interpreted by me (3pts min.). @ -yes X-rays interpreted by me (1pt min.). @ -yes negative for acute disease CT interpreted by me (1pt min.). @ -no U/S interpreted by me (1pt. min.). @ -no What testing was considered but not performed or refused? (CT, X-rays, U/S, labs)? Why? @ -none What meds were considered but not given or refused? Why? @ -none Did you discuss the management of the patient with other professionals (professionals i.e. , PA, LABORATORY SAMPLE CARRIER, lab, RT, psych nurse, director of social services, demolition hammer operator, teacher, security flex officer, telephonic case manager)? Give summary @ -no Was smoking cessation discussed for >3mins.? @ -no Was critical care preformed (if so, how long)? @ -no Were there social determinants of health that impacted care today? How? (Homelessness, low income, unemployed, alcoholism, drug addiction, transp ortation, low edu. Level, literacy, decrease access to med. care, senior living, rehab)? @ -none Was there de-escalation of care discussed even if they declined (Discuss DNR or withdrawal of care, Hospice)? DNR status @ -no What co-morbidities impacted this encounter? (DM, HTN, Smoking, COPD, CAD, Cancer, CVA, ARF, Chemo, Hep., AIDS, mental health diagnosis, sleep apnea, morbid obesity)? @ -none Was patient admitted / discharged? Hospital course, mention meds given and route, prescriptions, significant lab abnormalities, going to OR and other pertinent info. @ - Undiagnosed new problem with uncertain prognosis? @ -no Drug Therapy requiring intensive monitoring for toxicity (Heparin, Nitro, Insulin, Cardizem)? @ -no Were any procedures done? @ -no Diagnosis/symptom? @ - Acute, or Chronic, or Acute on Chronic? @ -Acute Uncomplicated (without systemic symptoms) or Complicated (systemic symptoms)? @ -Complicated Side effects of treatment? @ -no Exacerbation, Progression, or Severe Exacerbation? @ -exacerbation Poses a threat to life or bodily function? How? (Chest pain, [place], [place], pneumonia, PE, COPD, DKA, ARF, appy, cholecystitis, CVA, Diverticulitis, Homicidal, Suicidal, threat to staff... and all critical care pts) @ -yes Reevaluation #5: Differential Back Pain: Strain, zoster, cauda equina syndrome, epidural abscess, vertebral osteomyelitis, discitis, fracture, subluxation, disc herniation, DJD, spinal stenosis, dissection, AAA, pancreatitis, peptic ulcer disease, pyelonephritis, kidney stone, this is not meant to be an all-inclusive list. Medical Decision Making - Medical Decision Making 28 Male with acute on chronic back pain here in the ER, patient given anti- inflammatories and pain control can be discharged home Disposition Clinical Impression: Strain of lumbar region, Lumbar radiculopathy Disposition: HOME SELF-CARE Condition: Good Instructions (If sedation given, give patient instructions): Acute Low Back Pain (ED) Prescriptions: Ketorolac [Toradol] 10 mg PO Q6HR #20 tab Is patient prescribed a controlled substance at d/c from ED?: No Referrals: None,Stated [Primary Care Provider] - 1-2 days Time of Disposition: 17:10
[2024-05-13] MEDS: traMADol 50 MG TAB PO STA (17:29)
[2024-05-13] MEDS: dexAMETHasone 2 MG TAB PO STA (17:30)
[2024-05-13] MEDS: traMADol 50 MG STARTER PACK 3 TAB BTL PO STA (17:31)
[2024-05-13] MEDS: ETODOLAC 400 MG TAB PO STA (17:31)
--- NOTE | 2024-05-13 21:22 | XR ---
EXAMINATION TYPE: XR lumbar spine 2 or 3V DATE OF EXAM: 05/13/2024 7:35 PM COMPARISON: None. CLINICAL INDICATION: Male, 28 years old with history of pain, pain TECHNIQUE: 3 view(s) obtained. FINDINGS: There are 5 lumbar-type vertebral bodies. Pedicles are intact. Disc heights are preserved. Vertebral body heights are preserved. IMPRESSION: 1. No acute osseous abnormality lumbar spine [facility], Workstation: [facility], 05/13/2024 9:19 PM
--- NOTE | 2024-05-13 21:47 | XR ---
EXAMINATION TYPE: XR thoracic spine 2V DATE OF EXAM: 05/13/2024 7:35 PM COMPARISON: None. CLINICAL INDICATION: Male, 28 years old with history of pain, pain TECHNIQUE: 4 view(s) obtained. FINDINGS: There are 12 thoracic type vertebral bodies pedicles are intact. Disc heights are preserved. Vertebra l body heights are preserved. Alignment is normal. IMPRESSION: 1. Normal thoracic spine [facility], Workstation: [facility], 05/13/2024 9:45 PM
[2024-05-13 22:22] VITALS: BP 142/77; PULSE 77
== END 2024-05-13 22:20 | disposition home or self-care (01) ==
LOC: EC 16:23
DX: S39.012A Strain of muscle, fascia and tendon of lower back, initial encounter (principal); M54.16 Radiculopathy, lumbar region; W19.XXXA Unspecified fall, initial encounter
CPT/HCPCS: 72070; 72100; 99284; J8540

== ENCOUNTER → 2024-07-11 | Outpatient (CLI) | payer OTHER ==
[2024-07-11 16:30] LABS: Anion Gap 14.5 mmol/L (4.00-12.00); Basophils # (A) 0.04 X 10*3/uL (0.00-0.10); Basophils % (A) 0.5 %; Carbon Dioxide 25.5 mmol/L (21.6-31.8); Eosinophils # (A) 0.16 X 10*3/uL (0.04-0.35); Eosinophils % (A) 2.1 %; HCT 50.3 % (39.6-50.0); Lymphocytes # (A) 2.15 X 10*3/uL (0.90-5.00); Lymphocytes % (A) 27.7 %; MCH 29.7 pg (27.0-32.0); MCHC 33.8 g/dL (32.0-37.0); MCV 87.8 FL (80.0-97.0); Mean Platelet Volume 10.9 FL (9.5-12.2); Monocytes # (A) 0.61 X 10*3/uL (0.20-1.00); Monocytes % (A) 7.9 %; NRBC Per 100 WBC 0 X 10*3/uL (0.00-0.01); Neutrophils # (A) 4.74 X 10*3/uL (1.80-7.70); Platelet Count 309 X 10*3/uL (140-440); Potassium 4.7 mmol/L (3.5-5.5); RBC 5.73 X 10*6/uL (4.40-5.60); RDW 11.9 % (11.5-14.5); WBC 7.76 X 10*3/uL (4.50-10.00)
== END | disposition home or self-care (01) ==
LOC: LABPAT 09:12
PROVIDERS: ATTEND Orthopaedic Surgery
DX: Z01.812 Encounter for preprocedural laboratory examination (principal); M23.91 Unspecified internal derangement of right knee
CPT/HCPCS: 80051; 85025

== ENCOUNTER 2024-07-23 09:12 | Day surgery (SDC) | payer OTHER ==
[2024-07-21 13:07] VITALS: BMI 33.1
--- NOTE | 2024-07-22 13:48 | HP ---
HISTORY AND PHYSICAL DATE OF SURGERY: 07/23/2024. HISTORY OF PRESENT ILLNESS: Phil Daniels is a 28-year-old gentleman seen with progressive right knee pain. We discussed options regarding treatment. He elected to proceed with right knee arthroscopy. Consent was obtained. PAST MEDICAL HISTORY: Noncontributory. PAST SURGICAL HISTORY: Shoulder arthroscopy, knee arthroscopy. DAILY MEDICATIONS: 1. Celebrex. 2. Tylenol. ALLERGIES: None. SOCIAL HISTORY: Denies tobacco use. PHYSICAL EVALUATION OF THE RIGHT KNEE: His range of motion is 0 to 115 degrees. He is tender along the medial and lateral joint lines. He has a positive medial Anju's and a positive lateral Anju's. Ligaments stable. Hip rotation without pain. Distal neurovascular exam is intact. IMAGING STUDIES: Radiographs of the right knee revealed no abnormality. MRI of the right knee revealed mild osteoarthritis. IMPRESSION: Internal derangement of right knee with osteochondral tear. PLAN: Right knee arthroscopy with chondroplasty and debridement. MMODL / IJN: [id number] /
[2024-07-23] MEDS: IV FLUID CONTINUATION 1,000 ML IV ONE (09:32)
[2024-07-23] MEDS: LACTATED RINGERS 1,000 ML IV SCH (09:55)
[2024-07-23] MEDS: DEXAMETHASONE SOD PHOSPHATE 4 MG/ML 1 ML VIAL IV ONE (09:55)
[2024-07-23] MEDS: ONDANSETRON 4 MG/2 ML VIAL IVP ONE (09:55)
[2024-07-23] MEDS: BUPIVACAINE (PF) 0.25% 30 ML VIAL SQ ONE ×2 (10:21→10:58)
[2024-07-23 10:24] LABS: African American GFR (CKD) >90 (>60 ml/min/1.73 sqM); Anion Gap 11 mmol/L; Blood Urea Nitrogen 15 mg/dL (9-20); Calcium 9.5 mg/dL (8.4-10.2); Carbon Dioxide 23 mmol/L (22-30); Chloride 103 mmol/L (98-107); Glucose 106 mg/dL (74-99); Non-African American GFR(CKD) >90 (>60 ml/min/1.73 sqM); Sodium 137 mmol/L (137-145)
[2024-07-23] MEDS ORDERED: ePHEDrine 50 MG/ML 1 ML VIAL ONE (10:25)
[2024-07-23] MEDS ORDERED: LIDOCAINE 1% INJ 10MG/ML (20 ML MDV) ONE (10:25)
[2024-07-23] MEDS ORDERED: fentaNYL (PF) 50 MCG/ML 2 ML AMP ONE (10:25)
[2024-07-23] MEDS ORDERED: MIDAZOLAM 2 MG/2 ML VIAL ONE (10:25)
[2024-07-23] MEDS ORDERED: PROPOFOL 10 MG/ML 20 ML VIAL IV ONE (10:25)
[2024-07-23] MEDS ORDERED: KETAMINE HCL IN 0.9 % NACL 50 MG/5 ML SYRINGE ONE (10:25)
[2024-07-23 10:26] LABS: Potassium 4.6 mmol/L (3.5-5.1)
[2024-07-23] MEDS: ceFAZolin 2 GM in DEXTROSE 5% IN WATER 50 ML IVPB PRN (10:28)
--- NOTE | 2024-07-23 11:15 | P.OP ---
Date of Procedure: 07/23/24 Preoperative Diagnosis: Internal derangement right knee Postoperative Diagnosis: 1. Tear medial meniscus right knee 2. Reactive synovitis medial, lateral and suprapatellar compartments right knee 3. 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 Arthroscopic partial medial meniscectomy right knee 2. Arthroscopic partial synovectomy medial, lateral and suprapatellar compartments right knee 3. Arthroscopic chondroplasty medial femoral condyle right knee Anesthesia: REZAA, local Surgeon: Rickie Morales Estimated Blood Loss (ml): 5 Pathology: none sent Condition: stable Disposition: PACU Indications for Procedure: 28-year-old gentleman seen with progressive right knee pain. After having treatment options discussed, he elected to proceed with arthroscopy. Operative Findings: See description of procedure Description of Procedure: Patient was taken to the operative suite. Patient underwent a general anesthetic by the department of anesthesia. Patient was given preoperative antibiotics. The right lower extremity was placed in a well-padded arthroscopic leg marte. The right leg was prepped and draped in the normal sterile orthopedic fashion. A lateral parapatellar and suprapatellar incision was made. Trochars were inserted. Arthroscopy was initiated. Suprapatellar pouch revealed diffuse thick reactive synovitis. The patellofemoral joint appeared to articulate congruently. There was very early grade I chondromalacia. The scope was guided into the medial gutter. No loose bodies or plica were identified. The scope was then guided into the medial compartment. A medial parapatellar incision was made. Trocar inserted followed by probe. There was a radial tear involving the anterior horn of the medial meniscus. The posterior horn and mid body were stable. There was near grade II chondromalacia of the medial femoral condyle with osteochondral flap tears. There was thick reactive synovitis anteriorly. I introduced I then performed a a motorized shaver and performed a partial medial meniscectomy getting on the stable meniscal tissue. Partial synovectomy decompressing the synovitis followed by performing neuroplasty of the medial femoral condyle getting down to stable osteochondral tissue. The residual meniscus was probed and was found to be stable. There was good decompression of the synovitis. There was good stability of the residual osteochondral surface of the medial femoral condyle noting grade II/III chondromalacia. Scope and probe were then guided into the intercondylar notch. Cruciates were identified, probed and found to be stable. The scope and probe were then guided into lateral compartment. The lateral meniscus was probed and was found to be stable. There was no significant chondromalacia present lateral compartment. There was thick reactive synovitis anteriorly. I introduced a motorized shaver and performed a partial synovectomy. The shaver was removed. There was good decompression of the synovitis. The scope was in guided back into the suprapatellar compartment. I introduced a motorized shaver into the suprapatellar compartment. I performed a partial synovectomy. The shaver was removed. I now took 1 more look around the entire knee, no residual debris. Instruments were now removed from the joint. The joint was infiltrated with .25% Marcaine. Steri-Strips were applied to the portal sites. Sterile dressings were applied. The patient was placed into a TOMMY hose. No tourniquet was utilized. The patient was awakened, transferred to a bed and taken to recovery stable satisfactory condition.
[2024-07-23 11:18] VITALS: TEMP 96.9
[2024-07-23] MEDS: HYDROmorphone 0.5 MG/0.5 ML SYRINGE IVP PRN (11:39)
[2024-07-23 11:41] VITALS: RESP 16
[2024-07-23] MEDS: HYDROcodone/APAP 5-325MG 1 EACH TAB PO STA (12:45)
[2024-07-23 13:06] VITALS: BP 148/86; PULSE 95
== END 2024-07-23 13:24 | disposition home or self-care (01) ==
LOC: OR 09:12
PROVIDERS: ATTEND Orthopaedic Surgery
DX: S83.241A Other tear of medial meniscus, current injury, right knee, initial encounter (principal); M65.861 Other synovitis and tenosynovitis, right lower leg; K21.9 Gastro-esophageal reflux disease without esophagitis; F32.A Depression, unspecified; M19.90 Unspecified osteoarthritis, unspecified site; Z86.718 Personal history of other venous thrombosis and embolism; Z79.899 Other long term (current) drug therapy; X58.XXXA Exposure to other specified factors, initial encounter
CPT/HCPCS: 80048; 29881; J2250; J1100; J0690; J2405; J2003; J3010; J2704; J1171; J0665